=== PATIENT | female | born 1955 | race Hispanic/Latino ===

== ENCOUNTER 2018-08-04 12:18 | Emergency (ER) | payer BC ==
[2018-08-04] MEDS ORDERED: HYDROCODONE/APAP 10/325 TAB ONE (14:27)
--- NOTE | 2018-08-04 16:26 | EDPHYS ---
Physician Documentation [facility] Name: Court Louise Age: 63 yrs Sex: Female : 1955 Arrival Date: 08/04/2018 Time: 12:23 Bed 10 Private MD: Trey Mejia T; Vadim Crockett V ED Physician Raimundo Perez HPI: 08/04 14:18 This 63 yrs old Female presents to ER via Ambulatory with complaints of Knee jmm Pain. 14:18 The patient presents with an injury, pain, that is acute. Onset: The symptoms/episode jmm began/occurred gradually, 1 week(s) ago. Modifying factors: The symptoms are alleviated by elevating leg, the symptoms are aggravated by weight bearing. Associated signs and symptoms: Pertinent negatives fever, numbness. This is a 63 year old female with a history of htn that presents to the ED with left medial knee pain beginning approx 1 week ago. Pain is exacerbated by weight bearing. Patient denies injury or fever. . Historical: - Allergies: 13:01 No Known Allergies; aj1 - PMHx: 13:01 Hypertension; aj1 - Immunization history:: Adult Immunizations up to date. - Social history:: Smoking status: Patient/guardian denies using tobacco. - Ebola Screening: : No symptoms or risks identified at this time. ROS: 14:18 Constitutional: Negative for fever, chills, and weight loss, Eyes: Negative for injury, jmm pain, redness, and discharge, Cardiovascular: Negative for chest pain, palpitations, and edema, Respiratory: Negative for shortness of breath, cough, wheezing, and pleuritic chest pain. 14:18 MS/extremity: Positive for pain. 14:18 All other systems are negative. Exam: 14:18 Constitutional: This is a well developed, well nourished patient who is awake, alert, jmm and in no acute distress. Head/Face: atraumatic. Eyes: EOMI, no conjunctival erythema appreciated ENT: Moist Mucus Membranes Neck: Trachea midline, Supple Chest/axilla: Normal chest wall appearance and motion. Cardiovascular: Regular rate and rhythm. No edema appreciated Respiratory: Normal respirations, no respiratory distress appreciated Abdomen/GI: Non distended, soft Back: Normal ROM Skin: General appearance color normal 14:18 Musculoskeletal/extremity: ROM: intact in all extremities, limited active range of motion due to pain, Pulses: are normal with no appreciated deficits, pain elicited on palpation of the left medial knee, no erythema appreciated, no induration is appreciated. 14:18 Skin: Appearance: Color: normal in color. 14:18 Neuro: Orientation: is normal, Mentation: is normal, Memory: is normal. 14:18 Psych: Behavior/mood is pleasant, cooperative. Vital Signs: 13:01 BP 130 / 91; Pulse 71; Resp 18; Temp 97.0; Pulse Ox 100% on R/A; Weight 83.91 kg (R); aj1 Height 5 ft. 4 in. (162.56 cm); Pain 6/10; 16:34 BP 132 / 68; Pulse 78; Resp 18; Pulse Ox 100% on R/A; Pain 0/10; mg2 13:01 Body Mass Index 31.75 (83.91 kg, 162.56 cm) [facility] MDM: 14:16 Patient medically screened. [facility] 16:23 Data reviewed: vital signs, nurses notes. Counseling: I had a detailed discussion with [facility] the patient and/or guardian regarding: the historical points, exam findings, and any diagnostic results supporting the discharge/admit diagnosis, lab results, radiology results, the need for outpatient follow up, to return to the emergency department if symptoms worsen or persist or if there are any questions or concerns that arise at home. 16:23 ED course: Symptoms are relieved in the ED. Left knee is non erythematous, no known [facility] trauma, patient is afebrile, i do not suspect septic joint. patient given knee immobilzer and will follow up with her orthopedic surgeon. . 08/04 13:02 Order name: XRAY Knee LEFT 3 view [facility] 08/04 15:43 Order name: Knee Immobilizer; Complete Time: 16:03 [facility] Administered Medications: 14:21 Drug: [place] 10 mg-325 mg 1 tabs Route: PO; ss 16:03 Follow up: Response: No adverse reaction; Marked relief of symptoms mg2 Disposition: 18:32 Co-signature as Attending Physician, Raimundo Perez MD. rn Disposition: 08/04/18 16:25 Discharged to Home. Impression: Pain in left knee. - Condition is Stable. - Discharge Instructions: Knee Pain. - Prescriptions for Ultram 50 mg Oral Tablet - take 1 tablet by ORAL route every 6 hours As needed; 12 tablet. - Medication Reconciliation Form, Thank You Letter, Antibiotic Education, Prescription Opioid Use form. - Follow up: Vernon Bernal MD; When: 2 - 3 days; Reason: Recheck today's complaints, Continuance of care, Re-evaluation by your physician. Signatures: Dispatcher [employer] EDVanessa Cisneros RN RN aj1 Tyler Basurto PA PA jmm Nieto, Roman, MD MD rn Lamar Barone RN RN ss Jesus Pantoja RN RN mg2 Corrections: (The following items were deleted from the chart) 16:34 16:25 08/04/2018 16:25 Discharged to Home. Impression: Pain in left knee. Condition is mg2 Stable. Forms are Medication Reconciliation Form, Thank You Letter, Antibiotic Education, Prescription Opioid Use. Follow up: Vernon Bernal; When: 2 - 3 days; Reason: Recheck today's complaints, Continuance of care, Re-evaluation by your physician. nena
--- NOTE | 2018-08-04 16:26 | ER ---
Nurse's Notes [facility] Name: Court Louise Age: 63 yrs Sex: Female : 1955 Arrival Date: 08/04/2018 Time: 12:23 Bed 10 Private MD: Trey Mejia T; Vadim Crockett V Diagnosis: Pain in left knee Presentation: 08/04 13:00 Presenting complaint: Patient states: "I don't know what I did to my knee but it hurts aj1 like ondinazy. Its been hurting for the past week. I called my doctor but he can't see me until next week" Reports left knee pain. Denies injury to left knee Limited ROM to left knee. Transition of care: patient was not received from another setting of care. Onset of symptoms was July 2018. Risk Assessment: Do you want to hurt yourself or someone else? Patient reports no desire to harm self or others. Initial Sepsis Screen: Does the patient meet any 2 criteria? No. Patient's initial sepsis screen is negative. Does the patient have a suspected source of infection? No. Patient's initial sepsis screen is negative. Care prior to arrival: None. 13:00 Method Of Arrival: Ambulatory aj1 13:00 Acuity: TORIBIO 4 aj1 Triage Assessment: 13:01 General: Appears in no apparent distress. comfortable, Behavior is calm, cooperative, aj1 appropriate for age. Pain: Complains of pain in left knee Pain currently is 8 out of 10 on a pain scale. Neuro: No deficits noted. Level of Consciousness is awake, alert, obeys commands. Cardiovascular: Patient's skin is warm and dry. Respiratory: Airway is patent Respiratory effort is even, unlabored, Respiratory pattern is regular, symmetrical. Historical: - Allergies: 13:01 No Known Allergies; aj1 - PMHx: 13:01 Hypertension; aj1 - Immunization history:: Adult Immunizations up to date. - Social history:: Smoking status: Patient/guardian denies using tobacco. - Ebola Screening: : No symptoms or risks identified at this time. Screenin:00 Abuse screen: Denies threats or abuse. Denies injuries from another. Nutritional ss screening: No deficits noted. Tuberculosis screening: No symptoms or risk factors identified. Never had TB. Fall Risk None identified. Assessment: 14:00 General: Appears in no apparent distress. comfortable, Behavior is calm, cooperative, ss Denies fever, feeling ill, fatigue, chills. General: pt ambulated with steady gait and slight limp to exam room 10. Pain: Complains of pain in left knee Pain currently is 6 out of 10 on a pain scale. Quality of pain is described as aching, tender, Pain began 1 week ago Is continuous, Aggravated by increased activity, weight bearing. Neuro: Level of Consciousness is awake, alert, obeys commands, Oriented to person, place, time, situation. Cardiovascular: Capillary refill < 3 seconds is brisk in bilateral fingers. Respiratory: Airway is patent Respiratory effort is even, unlabored, Respiratory pattern is regular, symmetrical. GI: No signs and/or symptoms were reported involving the gastrointestinal system. EENT: Oral mucosa is moist. Throat is clear. Derm: Skin is pink, warm \\T\\ dry. Musculoskeletal: Circulation, motion, and sensation intact. Range of motion: intact in all extremities, Swelling absent. Vital Signs: 13:01 BP 130 / 91; Pulse 71; Resp 18; Temp 97.0; Pulse Ox 100% on R/A; Weight 83.91 kg (R); aj1 Height 5 ft. 4 in. (162.56 cm); Pain 6/10; 16:34 BP 132 / 68; Pulse 78; Resp 18; Pulse Ox 100% on R/A; Pain 0/10; mg2 13:01 Body Mass Index 31.75 (83.91 kg, 162.56 cm) aj1 ED Course: 12:23 Patient arrived in ED. sb2 12:23 Trey Mejia MD is Private Physician. sb2 12:23 Vadim Crockett MD is Private Physician. sb2 13:01 Triage completed. aj1 13:01 Arm band placed on Patient placed in waiting room, Patient notified of wait time. aj1 13:58 Tyler Basurto PA is PHCP. jmm 13:58 Raimundo Perez MD is Attending Physician. jmm 14:00 Patient has correct armband on for positive identification. Bed in low position. Call ss light in reach. 14:12 Lamar Barone, RN is Primary Nurse. ss 15:47 XRAY Knee LEFT 3 view In Process Unspecified. EDMS 16:03 No provider procedures requiring assistance completed. Patient did not have IV access mg2 during this emergency room visit. Knee immobilizer applied on left knee. 16:25 Vernon Bernal MD is Referral Physician. nena Administered Medications: 14:21 Drug: [place] 10 mg-325 mg 1 tabs Route: PO; ss 16:03 Follow up: Response: No adverse reaction; Marked relief of symptoms mg2 Outcome: 16:25 Discharge ordered by MD. nena 16:34 Discharged to home ambulatory, with family. mg2 16:34 Condition: stable 16:34 Discharge instructions given to patient, family, Instructed on discharge instructions, follow up and referral plans. medication usage, Demonstrated understanding of instructions, follow-up care, medications, Prescriptions given X 1. 16:34 Patient left the ED. mg2 Signatures: Dispatcher [employer] EDVanessa Cisneros RN RN aj1 Tyler Basurto PA PA jmm Smirch, Shelby, RN RN ss Briana Berg sb2 Jesus Pantoja RN RN mg2
[2018-08-04 16:40] VITALS: TEMP 97; O2SAT 100
[2018-08-04 16:45] VITALS: BP 132/68
--- NOTE | 2018-08-05 09:22 | RAD REPORT ---
EXAM DESCRIPTION: RAD - Knee Left 3 View - 08/04/2018 9:38 pm CLINICAL HISTORY: Nontraumatic left knee pain, limited range of motion Report was delayed due to technical malfunction COMPARISON: None. FINDINGS: No fracture, dislocation or periosteal reaction.Minimal joint effusion. Patella femoral josef int space narrowing is present with patella and femur marginal spurring. There is more minimal spurri ng at the quadriceps attachment. Spurring along the tibial spine present. No soft tissue abnormality. IMPRESSION: Degenerative changes are present along with minimal joint effusion. No acute bone findin g. Clinical concerns for internal derangement or occult bony injury could be further assessed with MR im aging.
== END 2018-08-04 16:34 | disposition home or self-care (01) ==
LOC: ER 12:18
DX: M25.562 Pain in left knee (principal); I10 Essential (primary) hypertension
CPT/HCPCS: 99284

== ENCOUNTER 2019-04-29 21:32 | Inpatient (IN) | payer BC ==
[2019-04-29] MEDS ORDERED: ONDANSETRON 4 MG/2 ML VIAL ONE (22:27)
[2019-04-29] MEDS ORDERED: FAMOTIDINE 20 MG/2 ML VIAL IV ONE (22:27)
[2019-04-29] MEDS ORDERED: NA CHLORIDE 0.9% 1,000 ML ONE (22:28)
[2019-04-29 22:40] LABS: Basophils % 0.5 % (0-1.3); Hematocrit 39.5 % (36.0-45.0); Lymphocytes % 12.1 % (15.3-44.8); MPV 10.3 fL (7.6-11.3); RBC Red Blood Cell Count 4.66 M/uL (3.86-4.86)
[2019-04-29 22:53] LABS: ALT/SGPT 26 U/L (12-78); AST/SGOT 23 U/L (15-37); Albumin 4.4 g/dL (3.4-5.0); Alkaline Phosphatase 88 U/L (45-117); BUN Blood Urea Nitrogen 34 mg/dL (7-18); Bicarbonate 26 mmol/L (21-32); Bilirubin Direct < 0.1 mg/dL (0-0.2); Bilirubin Total 0.4 mg/dL (0.2-1.0); Glucose Level 134 mg/dL (74-106); Lipase 213 U/L (73-393); Potassium 3.6 mmol/L (3.5-5.1); Protein, Total 8.2 g/dL (6.4-8.2); Sodium Level 142 mmol/L (136-145)
[2019-04-29] MEDS ORDERED: MORPHINE 4 MG/ML SYR ONE (23:11)
[2019-04-29] MEDS ORDERED: METOCLOPRAMIDE 10 MG/2mL INJ ONE (23:11)
[2019-04-29] MEDS ORDERED: CIPROFLOXACIN HCL 500 MG TAB ONE (23:55)
[2019-04-29] MEDS ORDERED: metroNIDAZOLE 500 MG TABLET ONE (23:55)
--- NOTE | 2019-04-30 01:05 | ER ---
Nurse's Notes [facility] Name: Court Louise Age: 63 yrs Sex: Female : 1955 Arrival Date: 04/29/2019 Time: 21:35 Bed 18 Private MD: Vadim Crockett V Diagnosis: Partial Small Bowel obstruction;Abdominal and pelvic pain Presentation: 04/29 21:38 Presenting complaint: Patient states: since 1729 I have had about 9 episodes of la1 vomiting and bad pain. Transition of care: patient was not received from another setting of care. Onset of symptoms was April 29, 2019. Risk Assessment: Do you want to hurt yourself or someone else? Patient reports no desire to harm self or others. Initial Sepsis Screen: Does the patient meet any 2 criteria? No. Patient's initial sepsis screen is negative. Does the patient have a suspected source of infection? No. Patient's initial sepsis screen is negative. Care prior to arrival: None. 21:38 Method Of Arrival: Ambulatory la1 21:38 Acuity: TORIBIO 3 la1 Historical: - Allergies: 21:39 No Known Allergies; la1 - PMHx: 21:39 Hypertension; High Cholesterol; la1 - PSHx: 21:39 foot sx; la1 - Immunization history:: Adult Immunizations up to date. - Social history:: Smoking status: Patient/guardian denies using tobacco. - Ebola Screening: : No symptoms or risks identified at this time. Screenin:03 Abuse screen: Denies threats or abuse. Denies injuries from another. Nutritional ak1 screening: No deficits noted. Tuberculosis screening: No symptoms or risk factors identified. Fall Risk None identified. Assessment: 22:03 General: Appears uncomfortable, Behavior is calm, cooperative. Pain: Complains of pain ak1 in abdomen Quality of pain is described as crampy, Pain began 3 hours ago. Neuro: No deficits noted. Cardiovascular: No deficits noted. Respiratory: No deficits noted. GI: Abdomen is round non-distended, Bowel sounds present X 4 quads. Abd is soft X 4 quads Abdomen is tender to palpation in right upper quadrant Reports cramping, nausea, Patient currently denies diarrhea. : No signs and/or symptoms were reported regarding the genitourinary system. EENT: No signs and/or symptoms were reported regarding the EENT system. Derm: No signs and/or symptoms reported regarding the dermatologic system. Musculoskeletal: No signs and/or symptoms reported regarding the musculoskeletal system. 04/30 00:00 Reassessment: pt returned from CT Patient states feeling better. Patient states ak1 symptoms have improved. 01:18 Reassessment: Patient appears in no apparent distress at this time. No changes from ak1 previously documented assessment. Patient and/or family updated on plan of care and expected duration. Pain level reassessed. Patient is alert, oriented x 3, equal unlabored respirations, skin warm/dry/pink. Patient states feeling better. Patient states symptoms have improved. 02:16 Reassessment: Patient appears in no apparent distress at this time. No changes from ak1 previously documented assessment. Patient and/or family updated on plan of care and expected duration. Pain level reassessed. Patient is alert, oriented x 3, equal unlabored respirations, skin warm/dry/pink. Patient states feeling better. Patient states symptoms have improved. Vital Signs: 04/29 21:39 BP 108 / 61; Pulse 81; Resp 16; Temp 98.4; Pulse Ox 98% on R/A; Weight 81.19 kg; Height la1 5 ft. 4 in. (162.56 cm); 23:04 BP 165 / 74; Pulse 74; Resp 16; Pulse Ox 99% on R/A; ak1 04/30 01:02 BP 129 / 70; Pulse 80; Resp 18; Temp 98.4; Pulse Ox 96% on R/A; Pain 0/10; ak1 02:17 BP 112 / 53; Pulse 72; Resp 16; Temp 98.6; Pulse Ox 97% on R/A; ak1 04/29 21:39 Body Mass Index 30.72 (81.19 kg, 162.56 cm) la1 ED Course: 04/29 21:35 Patient arrived in ED. am2 21:35 Vadim Crockett MD is Private Physician. am2 21:39 Triage completed. la1 21:39 Aleksandr Copeland MD is Attending Physician. kdr 21:39 Arm band placed on right wrist. la1 21:46 Sruthi Evangelista, VENECIA is Primary Nurse. ak1 22:03 Patient has correct armband on for positive identification. Placed in gown. Bed in low ak1 position. Call light in reach. Side rails up X 1. Adult w/ patient. Pulse ox on. NIBP on. Door closed. Lights dimmed. Warm blanket given. 22:44 Initial lab(s) drawn, by ED staff, sent to lab. Inserted saline lock: 20 gauge in right ak1 antecubital area, using aseptic technique. ,using aseptic technique. placed by Ashlee Meyer Blood collected. 22:51 Radiology exam delayed due to lab results not completed at this time. (BUN/Creatinine). 2 23:43 CT Abd/Pelvis - IV Contrast Only In Process Unspecified. EDMS 04/30 01:03 Vadim Crockett MD is Hospitalizing Provider. kdr 02:16 No provider procedures requiring assistance completed. Patient admitted, IV remains in ak1 place. Administered Medications: 04/29 22:42 Drug: NS 0.9% 1000 ml Route: IV; Rate: 1 bolus; Site: right antecubital; co1 04/30 00:19 Follow up: IV Status: Completed infusion; IV Intake: 1000ml ak 04/29 22:42 Drug: Zofran 4 mg Route: IVP; Site: right antecubital; ak1 22:43 Follow up: Response: No adverse reaction ak1 22:42 Drug: Pepcid 20 mg Route: IVP; Site: right antecubital; ak1 22:43 Follow up: Response: No adverse reaction ak1 23:22 Drug: Reglan 10 mg Route: IVP; Site: right antecubital; ak1 23:31 Follow up: Response: RASS: Restless (+1) co1 23:22 Drug: morphine 4 mg {Note: RASS 0.} Route: IVP; Site: right antecubital; ak1 23:30 Follow up: Response: Anxiety increased; RASS: Restless (+1) ak1 23:58 Drug: Flagyl 500 mg Route: PO; ak1 04/30 00:19 Follow up: Response: No adverse reaction ak1 04/29 23:59 Drug: Cipro 500 mg Route: PO; ak1 04/30 00:19 Follow up: Response: No adverse reaction ak1 Intake: 00:19 IV: 1000ml; Total: 1000ml. co1 Outcome: 01:04 Decision to Hospitalize by Provider. kdr 02:17 Admitted to Med/surg accompanied by tech, via wheelchair, room 406, with chart. ak1 02:17 Condition: good 02:17 Instructed on the need for admit. 02:53 Patient left the ED. ak1 Signatures: Dispatcher [employer] EDMS Aleksandr Copeland MD MD kdr Attema, Lee RN RN coty1 Sruthi Evangelista RN RN ak1 Maggie Mazariegos Victoria vm
--- NOTE | 2019-04-30 01:06 | EDPHYS ---
Physician Documentation [facility] Name: Court Louise Age: 63 yrs Sex: Female : 1955 Arrival Date: 04/29/2019 Time: 21:35 Bed 18 Private MD: Vadim Crockett V ED Physician Aleksandr Copeland HPI: 04/30 04:12 This 63 yrs old Female presents to ER via Ambulatory with complaints of kdr Nausea/Vomiting, Abdominal Cramping. 04:12 The patient presents to the emergency department with nausea, that is mild, vomiting, kdr that is intermittent, abdominal pain, of the right upper quadrant and right lower quadrant. Onset: The symptoms/episode began/occurred suddenly, just prior to arrival, at 18:30. Possible causes: bad food exposure. The symptoms are aggravated by movement, food , The symptoms are alleviated by nothing. Severity of symptoms: At their worst the symptoms were moderate severe in the emergency department the symptoms have improved mildly. The patient has not experienced similar symptoms in the past. The patient has not recently seen a physician. The patient had been eating out and prior to leaving the restaurant, she became ill feeling that she had food poisoning. Historical: - Allergies: 04/29 21:39 No Known Allergies; la1 - PMHx: 21:39 Hypertension; High Cholesterol; la1 - PSHx: 21:39 foot sx; la1 - Immunization history:: Adult Immunizations up to date. - Social history:: Smoking status: Patient/guardian denies using tobacco. - Ebola Screening: : No symptoms or risks identified at this time. ROS: 04/30 04:12 Constitutional: Negative for fever, chills, and weight loss, Eyes: Negative for injury, kdr pain, redness, and discharge, ENT: Negative for injury, pain, and discharge, Neck: Negative for injury, pain, and swelling, Cardiovascular: Negative for chest pain, palpitations, and edema, Respiratory: Negative for shortness of breath, cough, wheezing, and pleuritic chest pain, Back: Negative for injury and pain, : Negative for injury, bleeding, discharge, and swelling, MS/Extremity: Negative for injury and deformity, Skin: Negative for injury, rash, and discoloration, Neuro: Negative for headache, weakness, numbness, tingling, and seizure activity. Psych: Negative for depression, anxiety, suicide ideation, homicidal ideation, and hallucinations, Allergy/Immunology: Negative for hives, rash, and allergies, Endocrine: Negative for neck swelling, polydipsia, polyuria, polyphagia, and marked weight changes, Hematologic/Lymphatic: Negative for swollen nodes, abnormal bleeding, and unusual bruising. Abdomen/GI: Positive for abdominal pain, nausea and vomiting, Negative for diarrhea, constipation, abdominal distension, anorexia, dysphagia, hematemesis, black/tarry stool, rectal pain, rectal bleeding, bowel incontinence. Exam: 04:12 Constitutional: This is a well developed, well nourished patient who is awake, alert, kdr and in no acute distress. Head/Face: Normocephalic, atraumatic. Eyes: Pupils equal round and reactive to light, extra-ocular motions intact. Lids and lashes normal. Conjunctiva and sclera are non-icteric and not injected. Cornea within normal limits. Periorbital areas with no swelling, redness, or edema. Neck: Trachea midline, no thyromegaly or masses palpated, and no cervical lymphadenopathy. Supple, full range of motion without nuchal rigidity, or vertebral point tenderness. No Meningismus. Chest/axilla: Normal chest wall appearance and motion. Nontender with no deformity. No lesions are appreciated. Cardiovascular: Regular rate and rhythm with a normal S1 and S2. No gallops, murmurs, or rubs. Normal PMI, no JVD. No pulse deficits. Respiratory: Lungs have equal breath sounds bilaterally, clear to auscultation and percussion. No rales, rhonchi or wheezes noted. No increased work of breathing, no retractions or nasal flaring. Back: No spinal tenderness. No costovertebral tenderness. Full range of motion. Skin: Warm, dry with normal turgor. Normal color with no rashes, no lesions, and no evidence of cellulitis. MS/ Extremity: Pulses equal, no cyanosis. Neurovascular intact. Full, normal range of motion. Neuro: Awake and alert, GCS 15, oriented to person, place, time, and situation. Cranial nerves II-XII grossly intact. Motor strength 5/5 in all extremities. Sensory grossly intact. Cerebellar exam normal. Normal gait. Psych: Awake, alert, with orientation to person, place and time. Behavior, mood, and affect are within normal limits. 04:12 Abdomen/GI: Inspection: abdomen appears normal, Bowel sounds: diminished, in all quadrants, Palpation: soft, mild abdominal tenderness, in the right upper quadrant and right lower quadrant, mass, is not appreciated, rebound tenderness, is not appreciated, voluntary guarding, is not appreciated, Indicators: McBurney's point is not tender, Villalobos's sign is negative, Rovsing's sign is negative, Psoas sign is negative. Vital Signs: 04/29 21:39 BP 108 / 61; Pulse 81; Resp 16; Temp 98.4; Pulse Ox 98% on R/A; Weight 81.19 kg; Height la1 5 ft. 4 in. (162.56 cm); 23:04 BP 165 / 74; Pulse 74; Resp 16; Pulse Ox 99% on R/A; ak1 04/30 01:02 BP 129 / 70; Pulse 80; Resp 18; Temp 98.4; Pulse Ox 96% on R/A; Pain 0/10; ak1 02:17 BP 112 / 53; Pulse 72; Resp 16; Temp 98.6; Pulse Ox 97% on R/A; ak1 04/29 21:39 Body Mass Index 30.72 (81.19 kg, 162.56 cm) la1 MDM: 01:04 Patient medically screened. kdr 01:16 Data reviewed: vital signs, nurses notes, lab test result(s), radiologic studies. kdr Counseling: I had a detailed discussion with the patient and/or guardian regarding: the historical points, exam findings, and any diagnostic results supporting the discharge/admit diagnosis, lab results, radiology results, the need for further work-up and treatment in the hospital. Physician consultation: Vadim Crockett MD was called at 01:15, was contacted at 01:15, regarding admission, to the medical/surgical unit. and will see patient in inpatient room, later today. Physician consultation: Rohith Kennedy MD was called at 01:00, was contacted at 01:00, regarding admission, and will see patient in inpatient room, later today. Admission orders: after a detailed discussion of the patient's condition and case, the admit orders are written by me. ED course: The patient was stable. No NG since had vomited once and flet better. 04/29 22:12 Order name: Basic Metabolic Panel; Complete Time: 23:17 ak1 04/29 22:12 Order name: CBC with Diff; Complete Time: 23:17 ak1 04/29 22:12 Order name: Creatinine for Radiology; Complete Time: 23:17 ak1 04/29 22:12 Order name: Hepatic Function; Complete Time: 23:17 ak1 04/29 22:12 Order name: Lipase; Complete Time: 23:17 ak1 04/30 01:39 Order name: Basic Metabolic Panel EDMS 04/29 22:21 Order name: CT Abd/Pelvis - IV Contrast Only kdr 04/30 01:39 Order name: Basic Metabolic Panel EDMS 04/30 01:39 Order name: CBC with Automated Diff EDMS 04/30 01:39 Order name: CBC with Automated Diff EDMS 04/30 01:39 Order name: Lipase EDMS 04/30 01:39 Order name: Lipase EDMS 04/30 01:39 Order name: Liver (Hepatic) Function EDMS 04/30 01:39 Order name: Liver (Hepatic) Function EDMS 04/29 22:12 Order name: IV Saline Lock; Complete Time: 22:31 ak1 04/29 22:12 Order name: Labs collected and sent; Complete Time: 22: ak1 04/30 01:39 Order name: NPO EDMS Administered Medications: 04/29 22:42 Drug: NS 0.9% 1000 ml Route: IV; Rate: 1 bolus; Site: right antecubital; ak1 04/30 00:19 Follow up: IV Status: Completed infusion; IV Intake: 1000ml ak 04/29 22:42 Drug: Zofran 4 mg Route: IVP; Site: right antecubital; ak1 22:43 Follow up: Response: No adverse reaction ak1 22:42 Drug: Pepcid 20 mg Route: IVP; Site: right antecubital; ak1 22:43 Follow up: Response: No adverse reaction ak1 23:22 Drug: Reglan 10 mg Route: IVP; Site: right antecubital; ak1 23:31 Follow up: Response: RASS: Restless (+1) ak1 23:22 Drug: morphine 4 mg {Note: RASS 0.} Route: IVP; Site: right antecubital; ak1 23:30 Follow up: Response: Anxiety increased; RASS: Restless (+1) ak1 23:58 Drug: Flagyl 500 mg Route: PO; ak1 04/30 00:19 Follow up: Response: No adverse reaction ak1 04/29 23:59 Drug: Cipro 500 mg Route: PO; ak1 04/30 00:19 Follow up: Response: No adverse reaction ak1 Disposition: 04/30/19 01:04 Hospitalization ordered by Vadim Crockett for Inpatient Admission. Preliminary diagnosis are Partial Small Bowel obstruction, Abdominal and pelvic pain. - Bed requested for Telemetry/MedSurg (Inpatient). - Status is Inpatient Admission. ak1 - Condition is Fair. - Problem is new. - Symptoms have improved. UTI on Admission? No Signatures: Dispatcher [employer] EDMS Aleksandr Copeland MD MD kdr Attema, Lee RN RN Sruthi Ambriz RN RN [email or web address] Felisa Clement RN RN cg Corrections: (The following items were deleted from the chart) 02:06 01:04 Hospitalization Ordered by Vadim Crockett MD for Inpatient Admission. Preliminary cg diagnosis is Partial Small Bowel obstruction; Abdominal and pelvic pain. Bed requested for Telemetry/MedSurg (Inpatient). Status is Inpatient Admission. Condition is Fair. Problem is new. Symptoms have improved. UTI on Admission? No. kdr 02:09 02:06 04/30/2019 01:04 Hospitalization Ordered by Vadim Crockett MD for Inpatient cg Admission. Preliminary diagnosis is Partial Small Bowel obstruction; Abdominal and pelvic pain. Bed requested for Telemetry/MedSurg (Inpatient). Status is Inpatient Admission. Condition is Fair. Problem is new. Symptoms have improved. UTI on Admission? No. cg 02:53 02:09 04/30/2019 01:04 Hospitalization Ordered by Vadim Crockett MD for Inpatient ak1 Admission. Preliminary diagnosis is Partial Small Bowel obstruction; Abdominal and pelvic pain. Bed requested for Telemetry/MedSurg (Inpatient). Status is Inpatient Admission. Condition is Fair. Problem is new. Symptoms have improved. UTI on Admission? No. cg
[2019-04-30] MEDS ORDERED: ONDANSETRON 4 MG/2 ML VIAL IV PRN (01:33)
[2019-04-30] MEDS ORDERED: ACETAMINOPHEN 500 MG TAB PO PRN (01:33)
[2019-04-30] MEDS ORDERED: MORPHINE 4 MG/ML SYR IV PRN (01:33)
[2019-04-30] MEDS: D5 0.45 NS 1,000 ML IV SCH ×3 (03:25→20:21)
[2019-04-30 03:53] VITALS: BMI 30.1
[2019-04-30] MEDS: METRONIDAZOLE 500mg IVPB 500 MG/100 ML BAG IV SCH ×4 (06:11→23:43)
[2019-04-30 07:19] LABS: Urine Appearance CLEAR; Urine Bilirubin NEGATIVE (NEG); Urine Blood NEGATIVE (NEG); Urine Color YELLOW; Urine Glucose NEGATIVE (NEG); Urine Protein NEGATIVE (NEG); Urine Specific Gravity >=1.030 (1.005-1.030)
[2019-04-30 07:20] LABS: Urine Microscopic Reflex NO UMIC
[2019-04-30] MEDS: LEVOTHYROXINE SOD 0.112 MG TAB PO SCH (08:27)
[2019-04-30] MEDS: CIPROFLOXACIN 400mg IV 400 MG/200 ML BAG IV SCH ×2 (08:28→20:21)
[2019-04-30] MEDS: BENAZEPRIL 10 MG TAB PO SCH (08:29)
[2019-04-30] MEDS: AMLODIPINE 5 MG TAB PO SCH (08:29)
[2019-04-30] MEDS ORDERED: BENAZEPRIL PO SCH (09:00)
[2019-04-30] MEDS ORDERED: [UNRECOGNIZED DRUG - OTHER] PO SCH (09:00)
[2019-04-30] MEDS ORDERED: AMLODIPINE BESYLATE PO SCH (09:00)
--- NOTE | 2019-04-30 10:33 | RAD REPORT ---
EXAM DESCRIPTION: CT - Abdomen Pelvis W Contrast - 04/30/2019 2:05 am CLINICAL HISTORY: ABD PAIN COMPARISON: None Available. TECHNIQUE: CT of the abdomen and pelvis performed following IV administration of iodinated contrast. DLP: 1588.2 mGycm FINDINGS: Lung Bases: The visualized lung bases are clear. Bones: Mild degenerative change of the spine. Abdomen: Liver: The liver has normal size and density. No intrahepatic mass or biliary dilatation. Gallbladder: No calcified gallstones. Spleen, Pancreas, and Adrenal Glands: The spleen, pancreas, and adrenal glands are unremarkable. Kidneys: The kidneys have normal size and contour without evidence of hydronephrosis. 6 mm fat density structure in the interpolar left kidney. Vasculature: Aortoiliac atherosclerosis. IVC is unremarkable. The portal vein is patent. The proxim al visceral and renal arteries are patent. Stomach: The stomach and duodenum have normal course. Other: No free intraperitoneal air. Tiny fat-containing umbilical hernia. No free fluid or lymphade nopathy. Pelvis: Bladder: Urinary bladder is unremarkable. Bowel: Dilated loops of small bowel with transition to decompressed loops of small bowel right lowe r abdomen. The transition point is at the site of short segment wall thickening of the small bowel be st seen on images #46 through 50, series #501. The colon is nondilated. Appendix: Normal appendix. Pelvis: Uterus is not enlarged. IMPRESSION: 1. Findings compatible with small bowel obstruction with transition point in the right l ower abdomen. The transition occurs at a short segment of small bowel wall thickening which may repre sent enteritis of nonspecific etiology. Small bowel obstruction is likely partial. 2. 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 This exam was performed according to our departmental dose-optimization program, which includes autom ated exposure control, adjustment of the mA and/or kV according to patient size and/or use of iterati ve reconstruction technique. Electronically signed by: Delroy Muro 04/30/2019 12:01 AM CDT Due to temporary technical issues with the PACS/Fluency reporting system, reports are being signed by the in house radiologist as a courtesy to ensure prompt reporting. The interpreting radiologist is f ully responsible for the content of the report.
--- NOTE | 2019-04-30 13:13 | P.HP ---
Certification for Inpatient Patient admitted to: Observation With expected LOS: <2 Midnights Practitioner: I am a practitioner with admitting privileges, knowledge of patient current condition, hospital course, and medical plan of care. Services: Services provided to patient in accordance with Admission requirements found in Title 42 Section 412.3 of the Code of Federal Regulations Patient History Date of Service: 04/30/19 Reason for admission: NAUSEA AND VOMITING FOR A DAY. History of Present Illness: MIKI STARTED HAVING NAUSEA AND VOMITING WITHIN HOUR AFTER FOOD AT [employer]. SHE REPORTS TO ER. ER DOCTOR ORDERS CT SCAN AND RADIOLOGY REPORT SUGGEST PARTIA BLOCKAGE OF SMALL INTESTINE. SHE IS LOT BETTER NOW. DR. WARREN DOES NOT SUSPECT BOWEL BLOCKAGE ON CT SCAN. NOW THIS AM SHE HAS NO NAUSEA, VOMITING OR DIARRHEA. Allergies No Known Allergies Allergy (Verified 04/30/19 03:08) Home Medications: Amlodipine Besylate/Benazepril [Amlodipine-Benazepril 5-10 mg] 1 cap PO DAILY Atorvastatin Calcium 40 mg PO DAILY 04/30/19 Levothyroxine [Synthroid] 112 mcg PO DAILY 04/30/19 - Past Medical/Surgical History Has patient received pneumonia vaccine in the past: No Diabetic: No -: HTN -: High cholesterol -: Thyroid -: Foot sx -: Fat removed left shoulder - Family History Father -: Heart disease, Diabetes - Social History Smoking Status: Never smoker Alcohol use: Yes CD- Drugs: No Caffeine use: Yes Place of Residence: Home Review of Systems 10-point ROS is otherwise unremarkable Gastrointestinal: Nausea, Vomiting Physical Examination - Vital Signs Temperature: 98.4 F Blood Pressure: 136/70 Pulse: 72 Respirations: 16 Pulse Ox (%): 98 - Physical Exam General: Alert, In no apparent distress HEENT: Atraumatic, PERRLA, Mucous membr. moist/pink, EOMI, Sclerae nonicteric Neck: Supple, 2+ carotid pulse no bruit, No LAD, Without JVD or thyroid abnormality Respiratory: Clear to auscultation bilaterally, Normal air movement Cardiovascular: Regular rate/rhythm, Normal S1 S2 Gastrointestinal: Normal bowel sounds, No tenderness Musculoskeletal: No tenderness Integumentary: No rashes Neurological: Normal gait, Normal speech, Normal strength at 5/5 x4 extr, Normal tone, Normal affect Lymphatics: No axilla or inguinal lymphadenopathy - Studies Laboratory Data (last 24 hrs) 04/29/19 22:24: Creatinine 1.18 04/29/19 22:24: WBC 16.4 H, Hgb 13.4, Hct 39.5, Plt Count 246 04/29/19 22:24: Sodium 142, Potassium 3.6, BUN 34 H, Creatinine 1.16, Glucose 134 H, Total Bilirubin 0.4, AST 23, ALT 26, Alkaline Phosphatase 88, Lipase 213 Assessment and Plan - Problems (Diagnosis) (1) Partial small bowel obstruction Current Visit: Yes Status: Acute Plan: HER ABDOMEN IS VERY SOFT, SHE HAS NO DISTENSION AND BOWEL SOUNDS ARE PRESENT NORMALLY. I AGREE WITH DR. WARREN THAT SHE MAY NOT HAVE ANY OR VERY MILD BLOCKAGE. SHE MAY BE ABLE TO GO HOME IN AM. - Advance Directives Does patient have a Living Will: No Does patient have a Durable POA for Healthcare: No
--- NOTE | 2019-04-30 14:23 | CON ---
Date of Consultation: 04/30/2019 Brief History Of Present Illness: Patient is a 63-year-old female who presents to the hospital with approximately half a day history of epigastric mild abdominal pain radiating throughout the entire ab domen, more localized in the midline area, and some nausea and vomiting beginning yesterday after eat ing a meal. She has never had similar episodes before in the past. Since coming to the hospital, vivian reveles continues to have improvement of her symptoms. Her nausea has essentially resolved. She has no ab dominal pain at this time and has continued to pass gas. She has never not had bowel function throug hout this entire episode. She has continued to pass gas. Has not had a bowel movement since being i n the hospital, but had a normal one as of yesterday. Last colonoscopy was greater than [address] Cedillo. She denies any other symptomatology at this time. No fever, chills, recent sick c ontacts. No recent travel outside the country. No new food exposure she is aware of. She was eatin g at [facility] yesterday when these symptoms occurred. Past Medical History: Significant for hypertension, high cholesterol, hypothyroidism. Past Surgical History: She has had shoulder surgery and a foot surgery. Allergies: NO KNOWN DRUG ALLERGIES. Home Medications: Amlodipine, atorvastatin, levothyroxine. Social History: She denies smoking or alcohol other than recreationally and no recreational drug use . She is accompanied by her . Review of Systems: A 10-point review of systems other than HPI denies. Physical Examination: Vital Signs: Her BMI is 30. Blood pressure 121/59, pulse is 67, respiratory rate 18, temperature 97 .4. General: She is awake, alert, oriented. Psychiatric: She is appropriate and conversive. HEENT: Normocephalic. Sclerae anicteric. Mucous membranes moist. Oropharynx clear. Neck: Supple. No JVD. Chest: Normal expansion and excursion. Cardiovascular: Regular rate and rhythm. Pulmonary: Clear to auscultation bilaterally. Abdomen: Soft, nontender, nondistended. No rebound. No guarding. No focal peritonitis. Extremities: No clubbing, cyanosis, or edema. Laboratory Data: White blood count of 6.4, hemoglobin is 13.4, hematocrit of 39.5, platelet count is 246, neutrophils are 82%. Her sodium is 142, potassium 3.6, chloride 106, carbon dioxide 24, BUN 34 , creatinine 1.1, glucose is 134. Total bilirubin 0.4, direct component 0.1. AST 23, ALT 26, alkali ne phosphatase is 88. Lipase is 213. UA was essentially negative. She had imaging performed which included CT abdomen and pelvis, which was read by the MD.Voice system as a possible early partial sm all-bowel obstruction versus enteritis. I personally reviewed the CT and see that she has multiple d ilated loops of small bowel without an abrupt transition, and therefore I suspect more of an enteriti s-type picture. Assessment And Plan: This is a 63-year-old female who presents with signs of likely enteritis. 1.Examining the CT and her clinical exam do not sound indicative of a small-bowel obstruction, espec ially considering the patient has no obvious hernias or past surgical history in her abdomen. All of her surgeries were related to non-abdominal context. She has not had gynecologic or pelvic surgery as well, therefore lowering the suspicion of a partial small-bowel obstruction. 2.I recommend starting clear liquid diet and advancing as tolerated. 3.Should the patient tolerate this, she is deemed appropriate for discharge from a surgical standpoi nt when cleared by Dr. Crockett. 4.I recommend followup with GI, Dr. Cedillo, for repeat colonoscopy as well as outpatient followup. Thank you for this interesting consult. MARCIE/FRANCOISE Voice ID: [id number] Report ID: [id number]
[2019-04-30] MEDS ORDERED: ATORVASTATIN 40 MG TAB PO SCH (21:00)
[2019-04-30 23:19] VITALS: O2SAT 98
[2019-05-01] MEDS: D5 0.45 NS 1,000 ML IV SCH (02:06)
[2019-05-01] MEDS: LEVOTHYROXINE SOD 0.112 MG TAB PO SCH (05:47)
[2019-05-01] MEDS: METRONIDAZOLE 500mg IVPB 500 MG/100 ML BAG IV SCH (05:47)
[2019-05-01 05:56] LABS: Absolute Lymphocytes (CBC) 1.7 K/uL (0.7-4.9); Basophils % 0.4 % (0-1.3); Hematocrit 37.1 % (36.0-45.0); Lymphocytes % 21.8 % (15.3-44.8); MPV 10.3 fL (7.6-11.3); RBC Red Blood Cell Count 4.31 M/uL (3.86-4.86)
[2019-05-01 06:13] LABS: Albumin 3.5 g/dL (3.4-5.0); Bilirubin Direct 0.1 mg/dL (0-0.2); Bilirubin Total 0.4 mg/dL (0.2-1.0); Potassium 4.3 mmol/L (3.5-5.1); Protein, Total 6.8 g/dL (6.4-8.2)
[2019-05-01] MEDS: CIPROFLOXACIN 400mg IV 400 MG/200 ML BAG IV SCH (08:39)
[2019-05-01] MEDS: BENAZEPRIL 10 MG TAB PO SCH (08:40)
[2019-05-01] MEDS: AMLODIPINE 5 MG TAB PO SCH (08:40)
[2019-05-01 08:41] VITALS: BP 139/67
[2019-05-01 08:43] VITALS: TEMP 98
--- NOTE | 2019-05-01 09:48 | P.DS ---
Admission Date: 04/30/19 Discharge Date: 05/01/19 Disposition: ROUTINE DISCHARGE Discharge Condition: GOOD Reason for Admission: NAUSEA AND VOMITING FOR A DAY. - Problems (1) Partial small bowel obstruction Current Visit: Yes Status: Acute Brief History of Present Illness: MIKI STARTED HAVING NAUSEA AND VOMITING WITHIN HOUR AFTER FOOD AT [employer]. SHE REPORTS TO ER. ER DOCTOR ORDERS CT SCAN AND RADIOLOGY REPORT SUGGEST PARTIA BLOCKAGE OF SMALL INTESTINE. SHE IS LOT BETTER NOW. DR. WARREN DOES NOT SUSPECT BOWEL BLOCKAGE ON CT SCAN. NOW THIS AM SHE HAS NO NAUSEA, VOMITING OR DIARRHEA. \ MS. CHURCH IS DOING GREAT, SHE HAD TWO BM AND IS STABLE TO GO HOME. Vital Signs/Physical Exam: Temp Pulse Resp BP Pulse Ox 98.0 F 73 15 139/67 98 05/01/19 08:00 05/01/19 08:40 05/01/19 08:00 05/01/19 08:40 05/01/19 08:00 Laboratory Data at Discharge: WBC 7.8 K/uL (4.3-10.9) D 05/01/19 05:21 Hgb 12.6 g/dL (12.0-15.0) 05/01/19 05:21 Hct 37.1 % (36.0-45.0) 05/01/19 05:21 Plt Count 221 K/uL (152-406) 05/01/19 05:21 Sodium 144 mmol/L (136-145) 05/01/19 05:21 Potassium 4.3 mmol/L (3.5-5.1) 05/01/19 05:21 BUN 10 mg/dL (7-18) D 05/01/19 05:21 Creatinine 0.99 mg/dL (0.55-1.3) 05/01/19 05:21 Glucose 157 mg/dL (74-106) H 05/01/19 05:21 Total Bilirubin 0.4 mg/dL (0.2-1.0) 05/01/19 05:21 AST 16 U/L (15-37) 05/01/19 05:21 ALT 19 U/L (12-78) 05/01/19 05:21 Alkaline Phosphatase 70 U/L (45-117) 05/01/19 05:21 Lipase 147 U/L (73-393) 05/01/19 05:21 Home Medications: Amlodipine Besylate/Benazepril [Amlodipine-Benazepril 5-10 mg] 1 cap PO DAILY Atorvastatin Calcium 40 mg PO DAILY 04/30/19 Levothyroxine [Synthroid*] 112 mcg PO DAILY 04/30/19
== END 2019-05-01 11:35 | disposition home or self-care (01) | DRG 390 ==
LOC: ER 21:32 → ERHOLD 04-30 01:42 → 2ND 04-30 02:28
PROVIDERS: ADMIT Internal Medicine; ATTEND Internal Medicine
DX: K56.600 Partial intestinal obstruction, unspecified as to cause (principal); I10 Essential (primary) hypertension; E03.9 Hypothyroidism, unspecified; E78.00 Pure hypercholesterolemia, unspecified
CPT/HCPCS: 36415; 74177; 80048; 80076; 81003; 83690; 85025; 96361; 96374; 96375; 99285; J0744; J2405; J2765; J7030; Q9967

== ENCOUNTER 2023-03-01 12:50 | Emergency (ER) | payer OTHER, BC ==
[2023-03-01] MEDS ORDERED: LIDOCAINE 1% MPF 30 ML VIAL ONE (13:59)
[2023-03-01] MEDS ORDERED: HYDROCODONE/APAP 5/325 MG TAB ONE (14:42)
--- NOTE | 2023-03-01 14:42 | EDPHYS ---
Physician Documentation [facility] Name: Court Louise Age: 67 yrs Sex: Female : 1955 Arrival Date: 03/01/2023 Time: 12:50 Bed 2 Private MD: Vadim Crockett V ED Physician Figueroa Suarez HPI: 03/01 14:11 This 67 yrs old Female presents to ER via Ambulatory with complaints of snw Laceration To Foot. 14:11 The patient has a laceration related to: doing yard work, from a shovel, occurred snw outdoors. Onset: The symptoms/episode began/occurred suddenly, just prior to arrival. The patient has not experienced similar symptoms in the past. It is unknown whether or not the patient has recently seen a physician. Historical: - Allergies: 13:35 No Known Allergies; iw - PMHx: 13:35 High Cholesterol; Hypertension; iw - Immunization history:: Last tetanus immunization: unknown. ROS: 14:11 Constitutional: Negative for fever, chills, and weight loss, Eyes: Negative for injury, snw pain, redness, and discharge, ENT: Negative for injury, pain, and discharge, Neck: Negative for injury, pain, and swelling, Cardiovascular: Negative for chest pain, palpitations, and edema, Respiratory: Negative for shortness of breath, cough, wheezing, and pleuritic chest pain, Abdomen/GI: Negative for abdominal pain, nausea, vomiting, diarrhea, and constipation, Back: Negative for injury and pain, : Negative for injury, bleeding, discharge, and swelling, MS/Extremity: Negative for injury and deformity, Neuro: Negative for headache, weakness, numbness, tingling, and seizure, Psych: Negative for depression, anxiety, suicide ideation, homicidal ideation, and hallucinations. 14:11 Skin: Positive for laceration(s), of the right foot. Exam: 14:10 Constitutional: This is a well developed, well nourished patient who is awake, alert, snw and in no acute distress. Head/Face: Normocephalic, atraumatic. Eyes: Pupils equal round and reactive to light, extra-ocular motions intact. Lids and lashes normal. Conjunctiva and sclera are non-icteric and not injected. Cornea within normal limits. Periorbital areas with no swelling, redness, or edema. ENT: Nares patent. No nasal discharge, no septal abnormalities noted. Tympanic membranes are normal and external auditory canals are clear. Oropharynx with no redness, swelling, or masses, exudates, or evidence of obstruction, uvula midline. Mucous membranes moist. Neck: Trachea midline, no thyromegaly or masses palpated, and no cervical lymphadenopathy. Supple, full range of motion without nuchal rigidity, or vertebral point tenderness. No Meningismus. Chest/axilla: Normal chest wall appearance and motion. Nontender with no deformity. No lesions are appreciated. Cardiovascular: Regular rate and rhythm with a normal S1 and S2. No gallops, murmurs, or rubs. Normal PMI, no JVD. No pulse deficits. Respiratory: Lungs have equal breath sounds bilaterally, clear to auscultation and percussion. No rales, rhonchi or wheezes noted. No increased work of breathing, no retractions or nasal flaring. Abdomen/GI: Soft, non-tender, with normal bowel sounds. No distension or tympany. No guarding or rebound. No evidence of tenderness throughout. Back: No spinal tenderness. No costovertebral tenderness. Full range of motion. MS/ Extremity: Pulses equal, no cyanosis. Neurovascular intact. Full, normal range of motion. Neuro: Awake and alert, GCS 15, oriented to person, place, time, and situation. Cranial nerves II-XII grossly intact. Motor strength 5/5 in all extremities. Sensory grossly intact. Cerebellar exam normal. Normal gait. Psych: Awake, alert, with orientation to person, place and time. Behavior, mood, and affect are within normal limits. 14:10 Skin: Appearance: normal except for affected area, injury, laceration(s), the wound is approximately 3 cm(s), with a depth of 1.2 cm(s), of the left foot, dorsal right foot with extensor tendon laceration visible, FROM of all toes. Vital Signs: 13:34 BP 157 / 78; Pulse 79; Resp 16; Temp 98.4; Pulse Ox 99% ; iw Laceration: 14:38 Wound Repair of 3cm ( 1.2in ) tendon involved laceration to right foot. Linear shaped.. snw Distal neuro/vascular/tendon intact. 14:38 Wound Repair of 3cm ( 1.2in ) tendon involved laceration to right foot. Linear shaped.. snw Distal neuro/vascular/tendon intact. Anesthesia: Local anesthetic administered with 5 mls of 1% lidocaine. Wound prep: Moderate cleansing with hibiclenz by nurse, Extensive cleansing. Skin closed with 5 4-0 Prolene using simple sutures and sterile technique. Dressed with pressure dressing, non-adherent dressing, post op shoe. Patient tolerated well. MDM: 13:46 Patient medically screened. snw 14:43 Differential diagnosis: superficial laceration, tendon injury. Data reviewed: vital snw signs, nurses notes. I considered the following discharge prescriptions or medication management in the emergency department Medications were administered in the Emergency Department. See MAR. Counseling: I had a detailed discussion with the patient and/or guardian regarding: the historical points, exam findings, and any diagnostic results supporting the discharge/admit diagnosis, the need for outpatient follow up, for definitive care. Special discussion: I have referred the patient to see his PCP for further evaluation of high blood pressure. I discussed in detail with the patient the higher chance of wound infection based on his presenting history. Based on the history and exam findings, there is no indication for further emergent testing or inpatient evaluation. I discussed with the patient/guardian the need to see the primary care provider for further evaluation of the symptoms. 03/01 13:47 Order name: Dressing - Wound; Complete Time: 14:35 snw 03/01 13:47 Order name: Gloves, Sterile; Complete Time: 14:35 snw 03/01 13:47 Order name: Setup Suture Tray; Complete Time: 14:06 snw 03/01 14:44 Order name: Post-op shoe; Complete Time: 15:16 snw Administered Medications: 14:06 Drug: Hibiclens Topical Liquid 4 % 1 application Route: Topical; Site: affected area; aa5 14:30 Drug: Lidocaine Infiltration (1 %) 1 vials {Note: administered by DINING CAR CONDUCTOR for laceration aa5 repair .} Volume: 20 ml; Route: Infiltration; 14:35 Drug: [place] PO 5 mg-325 mg 1 tabs Route: PO; aa5 15:10 Follow up: Response: No adverse reaction aa5 15:00 Drug: Boostrix Tdap IM 0.5 ml Route: IM; Site: left deltoid; aa5 15:10 Follow up: Response: No adverse reaction aa5 Disposition Summary: 03/01/23 14:41 Discharge Ordered Location: Home snw Condition: Stable snw Diagnosis - LACERATION WITHOUT FOREIGN BODY OF RIGHT DORDAL FOOT WITH TENDON LACERATION snw Followup: snw - With: Emergency Department - When: 10 - 14 days - Reason: Staple/Suture removal Discharge Instructions: - Discharge Summary Sheet snw - Laceration Care, Adult snw - How to Use a Cast Shoe snw Forms: - Medication Reconciliation Form snw - Thank You Letter snw - Antibiotic Education snw - Prescription Opioid Use snw Prescriptions: - Cephalexin 500 mg Oral Capsule - take 1 capsule by ORAL route every 8 hours for 10 days; 30 capsule; Refills: 0, snw Product Selection Permitted - Tramadol 50 mg Oral Tablet - take 1 tablet by ORAL route every 8 hours as needed; 12 tablet; Refills: 0, snw Product Selection Permitted Signatures: Jennyfer Moreau, BUBBA-C REGULATORY COMPLIANCE SPECIALIST-Csnw Aurea Schulz RN RN iw Radha Mckeon RN RN aa5 Corrections: (The following items were deleted from the chart) 14:38 14:10 Skin: Appearance: normal except for affected area, injury, laceration(s), the snw wound is approximately 3 cm(s), with a depth of 1.2 cm(s), of the left foot, dorsal left foot with extensor tendon laceration visible, FROM of all toes. snw 14:38 14:11 Skin: Positive for laceration(s), of the left foot, snw snw
--- NOTE | 2023-03-01 14:42 | ER ---
Nurse's Notes [facility] Name: Court Louise Age: 67 yrs Sex: Female : 1955 Arrival Date: 03/01/2023 Time: 12:50 Bed 2 Private MD: Vadim Crockett V Diagnosis: LACERATION WITHOUT FOREIGN BODY OF RIGHT DORDAL FOOT WITH TENDON LACERATION Presentation: 03/01 13:34 Chief complaint: Patient states: dropped a shovel on the top of her right foot. iw Coronavirus screen: At this time, the client does not indicate any symptoms associated with coronavirus-19. Ebola Screen: Patient negative for fever greater than or equal to 101.5 degrees Fahrenheit, and additional compatible Ebola Virus Disease symptoms Patient denies exposure to infectious person. Patient denies travel to an Ebola-affected area in the 21 days before illness onset. No symptoms or risks identified at this time. Complicating Factors: There are no complicating factors for this patient. Initial Sepsis Screen: Does the patient meet any 2 criteria? No. Patient's initial sepsis screen is negative. Does the patient have a suspected source of infection? No. Patient's initial sepsis screen is negative. Risk Assessment: Do you want to hurt yourself or someone else? Patient reports no desire to harm self or others. Onset of symptoms was March 01, 2023. 13:34 Method Of Arrival: Ambulatory 13:34 Acuity: TORIBIO 4 iw Historical: - Allergies: 13:35 No Known Allergies; iw - PMHx: 13:35 High Cholesterol; Hypertension; iw - Immunization history:: Last tetanus immunization: unknown. Screenin:00 [facility] ED Fall Risk Assessment (Adult) History of falling in the last 3 months, aa5 including since admission No falls in past 3 months (0 pts) Confusion or Disorientation No (0 pts) Intoxicated or Sedated No (0 pts) Impaired Gait No (0 pts) Mobility Assist Device Used No (0 pt) Altered Elimination No (0 pt) Score/Fall Risk Level 0 - 2 = Low Risk. Abuse screen: Denies threats or abuse. Nutritional screening: No deficits noted. Tuberculosis screening: No symptoms or risk factors identified. Assessment: 14:00 General: Appears uncomfortable, Behavior is calm, cooperative. Pain: Complains of pain aa5 in right foot Pain does not radiate. Quality of pain is described as throbbing, Pain began 2 hours ago. Neuro: Level of Consciousness is awake, alert, obeys commands, Oriented to person, place, time, situation. Cardiovascular: Heart tones S1 S2 present Rhythm is regular. Respiratory: Airway is patent Respiratory effort is even, unlabored, Respiratory pattern is regular, symmetrical. GI: No signs and/or symptoms were reported involving the gastrointestinal system. : No signs and/or symptoms were reported regarding the genitourinary system. EENT: No signs and/or symptoms were reported regarding the EENT system. Derm: Skin is pink, warm \T\ dry. Musculoskeletal: Range of motion: intact in all extremities. Injury Description: Laceration sustained to dorsum of right foot is clean, not bleeding, approximately 1in long was sustained 1-2 hours ago. is bleeding no active bleeding noted. 15:10 Reassessment: Patient is alert, oriented x 3, equal unlabored respirations, skin aa5 warm/dry/pink. 15:10 Reassessment: Wound dressed with non-adherent dressing and tape. Post-op shoe applied. .aa5 Vital Signs: 13:34 BP 157 / 78; Pulse 79; Resp 16; Temp 98.4; Pulse Ox 99% ; iw ED Course: 12:51 Patient arrived in ED. am2 12:52 Vadim Crockett MD is Private Physician. am2 13:25 Jennyfer Moreau FNP-C is [facility]. snw 13:25 Figueroa Suarez MD is Attending Physician. snw 13:35 Triage completed. iw 13:35 Arm band placed on. iw 13:48 Radha Mckeon, VENECIA is Primary Nurse. aa5 15:10 No provider procedures requiring assistance completed. Patient did not have IV access aa5 during this emergency room visit. Administered Medications: 14:06 Drug: Hibiclens Topical Liquid 4 % 1 application Route: Topical; Site: affected area; aa5 14:30 Drug: Lidocaine Infiltration (1 %) 1 vials {Note: administered by OFFICE MESSENGER HELPER for laceration aa5 repair .} Volume: 20 ml; Route: Infiltration; 14:35 Drug: [place] PO 5 mg-325 mg 1 tabs Route: PO; aa5 15:10 Follow up: Response: No adverse reaction aa5 15:00 Drug: Boostrix Tdap IM 0.5 ml Route: IM; Site: left deltoid; aa5 15:10 Follow up: Response: No adverse reaction aa5 Outcome: 14:41 Discharge ordered by . nate 15:16 Patient left the ED. iw Signatures: Jennyfer Moreau, ORDNANCE TRUCK INSTALLATION SUPERVISOR-C ORDNANCE TRUCK INSTALLATION SUPERVISOR-Csnw Aurea Schulz RN RN iw Radha Mckeon RN RN aa5 Maggie Mazariegos am2 Corrections: (The following items were deleted from the chart) 13:35 13:34 Resp 16bpm; Pulse Ox 99%; Temp 98.4F; iw iw
[2023-03-01] MEDS ORDERED: TDAP (DIPHTH,PERTUSS(ACELL),TET VAC) 0.5 ML VIAL IMVAC ONE (15:07)
[2023-03-01 15:21] VITALS: BP 157/78; TEMP 98.4; O2SAT 99
== END 2023-03-01 15:16 | disposition home or self-care (01) ==
LOC: ER 12:50
PROC: 0LQV0ZZ Repair Right Foot Tendon, Open Approach (ICD-10-PCS; principal; 2023-03-01)
DX: S91.311A Laceration without foreign body, right foot, initial encounter (principal); I10 Essential (primary) hypertension
CPT/HCPCS: 28208; J2001; 96372; 99284

== ENCOUNTER 2023-03-15 09:15 | Emergency (ER) | payer OTHER, BC ==
--- NOTE | 2023-03-15 09:36 | EDPHYS ---
Physician Documentation [facility] Name: Court Louise Age: 67 yrs Sex: Female : 1955 Arrival Date: 03/15/2023 Time: 09:15 Bed 12 Private MD: Figueroa Colindres HPI: 03/15 09:51 This 67 yrs old Female presents to ER via Ambulatory with complaints of sb4 Stiches removed. 09:51 The patient has sutures on the right foot. Previous treatment: The patient was sb4 initially treated 14 day(s) ago, the care was rendered at [facility]. Sutures/aura progress: The patient has no c/o's. The wound is well-healing with no redness, swelling, discharge, or dehiscence reported. Historical: - Allergies: 09:26 No Known Allergies; kl - PMHx: 09:26 High Cholesterol; Hypertension; kl - PSHx: 09:26 None; kl - Immunization history:: Client reports receiving the 2nd dose of the Covid vaccine. - Social history:: Smoking status: Patient denies any tobacco usage or history of. ROS: 09:51 Constitutional: Negative for fever, chills, and weight loss. sb4 09:51 Skin: Positive for laceration(s). 09:51 All other systems are negative. Exam: 09:51 Constitutional: This is a well developed, well nourished patient who is awake, alert, sb4 and in no acute distress. Head/Face: Normocephalic, atraumatic. Eyes: Extra-ocular motions intact. Periorbital areas with no swelling, redness, or edema. MS/ Extremity: Pulses equal, no cyanosis. Neurovascular intact. Full, normal range of motion. 09:51 Skin: Wound recheck: Suture laceration closure: the wound is healing well, no evidence of dehiscence, no drainage, no erythema, no swelling. Vital Signs: 09:22 BP 130 / 73; Pulse 65; Resp 18; Temp 98.2; Pulse Ox 100% ; Weight 83.91 kg; Height 5 kl ft. 4 in. ; Pain 0/10; 09:22 Body Mass Index 31.75 (83.91 kg, 162.56 cm) kl 09:22 Pain Scale: Adult kl Procedures: 09:51 Suture/Staple removal: Removed 5 sutures, from right foot, site appears well healed, sb4 Patient tolerated well. MDM: 09:18 Patient medically screened. sb4 09:51 Data reviewed: vital signs, nurses notes, and as a result, I will discharge patient. sb4 Administered Medications: No medications were administered Disposition Summary: 03/15/23 09:36 Discharge Ordered Location: Home sb4 Condition: Stable sb4 Diagnosis - Encounter for removal of sutures sb4 Followup: sb4 - With: Vadim Crockett MD - When: - Reason: Recheck today's complaints, Continuance of care, Re-evaluation by your physician Discharge Instructions: - Discharge Summary Sheet sb4 - Suture Removal, Care After sb4 Forms: - Medication Reconciliation Form sb4 - Thank You Letter sb4 - Antibiotic Education sb4 - Prescription Opioid Use sb4 - [email or web address] sb4 Signatures: Rosemary Perez RN RN Deepika Lira PA-C PA-C sb4
--- NOTE | 2023-03-15 09:36 | ER ---
Nurse's Notes [facility] Name: Court Louise Age: 67 yrs Sex: Female : 1955 Arrival Date: 03/15/2023 Time: 09:15 Bed 12 Private MD: Diagnosis: Encounter for removal of sutures Presentation: 03/15 09:22 Chief complaint: Patient states: Needs stitches removed from right foot. Gotten 2 weeks kl ago. Coronavirus screen: Vaccine status: Patient reports receiving the 2nd dose of the covid vaccine. Ebola Screen: Patient denies travel to an Ebola-affected area in the 21 days before illness onset. Initial Sepsis Screen: Does the patient meet any 2 criteria? No. Patient's initial sepsis screen is negative. Does the patient have a suspected source of infection? No. Patient's initial sepsis screen is negative. Risk Assessment: Do you want to hurt yourself or someone else? Patient reports no desire to harm self or others. Onset of symptoms. 09:22 Method Of Arrival: Ambulatory 09:22 Acuity: TORIBIO 5 kl Triage Assessment: :27 General: Appears in no apparent distress. comfortable, Behavior is calm, cooperative, nj1 appropriate for age. Pain: Denies pain. Neuro: Level of Consciousness is awake, alert, obeys commands, Oriented to person, place, time, situation. Cardiovascular: Patient's skin is warm and dry. Respiratory: Airway is patent Respiratory effort is even, unlabored. Historical: - Allergies: 09:26 No Known Allergies; kl - PMHx: 09:26 High Cholesterol; Hypertension; kl - PSHx: 09:26 None; kl - Immunization history:: Client reports receiving the 2nd dose of the Covid vaccine. - Social history:: Smoking status: Patient denies any tobacco usage or history of. Screenin:27 [facility] ED Fall Risk Assessment (Adult) History of falling in the last 3 months, nj1 including since admission No falls in past 3 months (0 pts) Confusion or Disorientation No (0 pts) Intoxicated or Sedated No (0 pts) Impaired Gait No (0 pts) Mobility Assist Device Used No (0 pt) Altered Elimination No (0 pt) Score/Fall Risk Level 0 - 2 = Low Risk Oriented to surroundings, Maintained a safe environment, Hourly rounding (assess needs \T\ fall precautionary measures) done. Abuse screen: Denies threats or abuse. Denies injuries from another. Nutritional screening: No deficits noted. Tuberculosis screening: No symptoms or risk factors identified. Assessment: 09:45 General: See triage assessment. hb Vital Signs: 09:22 BP 130 / 73; Pulse 65; Resp 18; Temp 98.2; Pulse Ox 100% ; Weight 83.91 kg; Height 5 kl ft. 4 in. ; Pain 0/10; 09:22 Body Mass Index 31.75 (83.91 kg, 162.56 cm) kl 09:22 Pain Scale: Adult kl ED Course: 09:17 Patient arrived in ED. ts1 09:18 Deep[facility] Fitzpatrick [facility]-C [facility]. sb4 09:18 Figueroa Suarez MD is Attending Physician. sb4 09:26 Triage completed. kl 09:26 Arm band placed on right wrist. kl 09:28 Patient has correct armband on for positive identification. Bed in low position. Call nj1 light in reach. Adult w/ patient. 09:35 Vadim Crockett MD is Referral Physician. sb4 09:45 No provider procedures requiring assistance completed. Patient did not have IV access hb during this emergency room visit. Administered Medications: No medications were administered Medication: 09:45 VIS not applicable for this client. hb Outcome: 09:36 Discharge ordered by . sb4 09:57 Discharged to home ambulatory, with significant other. hb 09:57 Condition: stable hb 09:57 Discharge instructions given to patient, Instructed on discharge instructions, follow up and referral plans. medication usage, Demonstrated understanding of instructions, follow-up care, medications. 09:57 Patient left the ED. hb Signatures: Rosemary Perez RN Raquel Gentile RN RN Deepika Fitzpatrick PA-C PA-C sb4 Elle Lea RN RN nj1 Madhuri Brunson PAS PAS ts1 Corrections: (The following items were deleted from the chart) 09:26 09:22 Pulse 65bpm; Resp 18bpm; Pulse Ox 100%; Temp 98.2F; 83.91 kg; Height 5 ft. 4 in.; BMI: 31.7; Pain 0/10, Adult; kl
[2023-03-15 10:06] VITALS: BP 130/73; TEMP 98.2; O2SAT 100
== END 2023-03-15 09:57 | disposition home or self-care (01) ==
LOC: ER 09:15
DX: Z48.02 Encounter for removal of sutures (principal)
CPT/HCPCS: 99282

== ENCOUNTER 2023-07-29 10:30 | Emergency (ER) | payer OTHER, BC ==
--- OUTSIDE RECORDS SUMMARY | 2023-07-29 10:36 | XMS REPORT | Continuity of Care Document ---
:1955 Author Organization [facility] t Address [address] [facility] [address] [place] [address] Care Team Providers Name Role Phone Vadim Alejo Primary Care Physician Hunter Casper MD Attending Clinician HUNTER CASPER Attending Clinician Unavailable Doctor Unassigned, [place] Attending Clinician Unavailable Hunter Casper MD Admitting Clinician HUNTER CASPER Admitting Clinician Unavailable Payers Payer Name Policy Type Policy Number Effective Date Expiration Date S ource Problems This patient has no known problems. Allergies, Adverse Reactions, Alerts Allergy Allergy Status Severity Reaction(s) Onset Inactive Treating Comm ents Source Name Type Date Date Clinician NO KNOWN Drug Active Univers ALLERGIE Class ity of S [facility] Social History Social Habit Start Date Stop Date Quantity Comments Source Gender identity [facility] Sexual orientation [facility] Social 2023-05-21 2023-05-21 Univers ity of function 00:00:00 00:00:00 [facility] Tobacco use and 2023-04-30 2023-04-30 Smokeless Universit y of exposure 00:00:00 00:00:00 tobacco non-user [facility] Sex Assigned At [birth year] Universit y of 00:00:00 00:00:00 [facility] Smoking Status Start Date Stop Date Source Never smoked tobacco [facility] Medications Ordered Filled Start Stop Current Ordering Indication Dosage Frequency Signature Comments Components Source Medication Medication Date Date Medication? Clinician (SIG) Name Name neomycin-po 2022- No PRN, Unive rs lymyxin-dex 05-21 Starting ity of amethasone 18:58: 19[place]02 [place] ([place]ROL[place] 00 :33 05/21/23 at [facility] ical 3.5 1358, Branch mg/g-10,000 Until Fri unit/g-0.1 05/21/23 at % 1402, ophthalmic Routine, ointment Intra-op sodium 2022- No PRN, Univers chloride 05-21 Starting ity of (NS) 18:53: 19:02 on Fri [place] injection 00 :33 05/21/23 at [facility] merlin 1353, Branch Until Fri05/21/23 at 1402, Routine, Intra-op dexamethaso 2022- No PRN, Unive rs ne 05-21 Starting ity of (DECADRON 18:53: 19:02 on Fri [place] PHOSPHATE) 00 :33 05/21/23 at [facility] ical injection 1353, Branch Until Fri05/21/23 at 1402, Routine, Intra-op ceFAZolin 2022- No PRN, Univers (ANCEF) 05-21 Starting ity of injection 18:53: 19:02 on Fri 00 :33 05/21/23 at Medical 1353, Branch Until Fri05/21/23 at 1402, MAX, Intra-op carbachoL 2022- No PRN, Univers (MIOSTAT) 05-21 Starting ity o f 0.01 % 18:52: 19:02 on Fri intraocular 00 :33 05/21/23 at [place] injection 1352, Branch Until Fri05/21/23 at 1402, Routine, Intra-op EPINEPHrine 2022- No PRN, Unive rs 1:1,000 (1 05-21 Starting ity of mg/mL) 18:41: 19:02 on Fri (ADRENALIN) 00 :33 05/21/23 at [place] dical injection 1341, Branch Until Fri05/21/23 at 1402, Routine, Intra-op chondroitin 2022- No PRN, Unive rs sulf-sod 05-21 Starting ity of hyaluronate 18:41: 19:02 on Fri [place] (DUOVISC 00 :33 05/21/23 at Medic al VISCO 1341, Branch ELASTIC) Until Fri intraocular 05/21/23 at injection 1402, Routine, Intra-op balanced 2022- No PRN, Univers salt irrig 05-21 Starting ity of soln comb1 18:41: 19:02 on Fri [place] (BSS PLUS) 00 :33 05/21/23 at Med ical ophthalmic 1341, Branch solution Until Fri 500 mL bag 05/21/23 at 1402, Routine, Intra-op water for 2022- No PRN, Univers irrigation 05-21 Starting ity of irrigation 18:34: 19:02 on Fri [place] solution 00 :33 05/21/23 at Medic al 1334, Branch Until Fri05/21/23 at 1402, Routine, Intra-op Hyaluronida 2022- No PRN, [facility] rs se, Human 05-21 Starting ity o f Recomb. 18:30: 19:02 on Fri [place] (HYLENEX) 00 :33 05/21/23 at Medi merlin injection 1330, Branch Until Fri05/21/23 at 1402, Routine, Intra-op eye block 2022- No PRN, Univers syringe 11 05-21 Starting ity of mL 18:30: 19:02 on Wed [place] 00 :33 05/21/23 at Medical 1330, Branch Until Fri05/21/23 at 1402, Intra-op lactated 2022- No 1000mL at 42 [facility] rs ringers IV 05-21 mL/hr, ity of infusion 17:00: 16:59 1,000 mL, [place] 1,000 mL 00 :00 IV Medical Infusion, Branch ONCE, 1 dose, On Fri05/21/23 at 1200, Routine, DSU Pre-op lactated 2022- No 1000mL at 42 [facility] rs ringers IV 05-21 mL/hr, ity of infusion 17:00: 16:59 1,000 mL, [place] 1,000 mL 00 :00 IV Medical Infusion, Branch ONCE, 1 dose, On Fri05/21/23 at 1200, Routine, DSU Pre-op atorvastati 0 Yes 80mg Take 1 Univ ers n 80 mg 9-13 tablet by ity of tablet 15:58: mouth in [place] [address] the Medical morning. Branch amLODIPine- 0 Yes 1{capsu Take 1 U nivers benazepriL 9-13 le} capsule by ity of 5-20 mg per 15:58: mouth in [place] capsule the Medical morning. Branch levothyroxi 0 Yes 100ug Take 1 Uni vers ne 100 mcg 9-13 tablet by ity of tablet 15:58: mouth [place] [address] every Medical morning. Branch aspirin 81 0 Yes 81mg Take 1 Unive rs mg EC 9-13 tablet by ity of tablet 15:58: mouth in [place] [address] the Medical morning. Branch coQ10, Yes 1{capsu Take 1 Univer s ubiquinol, 9-13 le} capsule by ity of 100 mg Cap 15:58: mouth in [place] 27 the Medical morning. Branch cholecalcif Yes 1000U Take 1 Uni vers harrison, 9-13 tablet by ity of vitamin D3, 15:58: mouth in [place] (VITAMIN 27 the Medical D3) 25 mcg morning. Branc h (1,000 unit) tablet tiZANidine Yes 4mg Take 1 Unive rs 4 mg 9-13 capsule by ity of capsule 15:58: mouth 3 [place] [address] (three) Medical times Branch daily as needed for Muscle Spasms. ezetimibe 0 Yes 10mg Take 1 Univer s 10 mg 9-13 tablet by ity of tablet 15:58: mouth [place] [address] every Medical morning. Branch atorvastati 0 Yes 80mg Take 1 Univ ers n 80 mg 9-13 tablet by ity of tablet 15:58: mouth in [place] [address] the Medical morning. Branch amLODIPine- 0 Yes 1{capsu Take 1 U nivers benazepriL 9-13 le} capsule by ity of 5-20 mg per 15:58: mouth in [place] capsule 27 the Medical morning. Branch levothyroxi 2022-0 Yes 100ug Take 1 Uni vers ne 100 mcg 9-13 tablet by ity of tablet 15:58: mouth 27 every Medical morning. Branch aspirin 81 0 Yes 81mg Take 1 Unive rs mg EC 9-13 tablet by ity of tablet 15:58: mouth in [place] 27 the Medical morning. Branch coQ10, Yes 1{capsu Take 1 Univer s ubiquinol, 9-13 le} capsule by ity of 100 mg Cap 15:58: mouth in [place] 27 the Medical morning. Branch cholecalcif Yes 1000U Take 1 Uni vers harrison, 9-13 tablet by ity of vitamin D3, 15:58: mouth in [place] (VITAMIN 27 the Medical D3) 25 mcg morning. Branc h (1,000 unit) tablet tiZANidine Yes 4mg Take 1 Unive rs 4 mg 9-13 capsule by ity of capsule 15:58: mouth 3 [place] 27 (three) Medical times Branch daily as needed for Muscle Spasms. ezetimibe Yes 10mg Take 1 Univer s 10 mg 9-13 tablet by ity of tablet 15:58: mouth [place] 27 every Medical morning. Branch sodium 2022- No PRN, Univers chloride 05-07 Starting ity of (NS) 18:01: 18:07 on Fri injection 00 :19 05/07/23 at Medi merlin 1301, Branch Until Fri05/07/23 at 1307, Routine, Intra-op neomycin-po 2022- No PRN, Unive rs lymyxin-dex 05-07 Starting ity of amethasone 18:01: 18:07 on [place] (MAXITROL) 00 :19 05/07/23 at Med ical 3.5 1301, Branch mg/g-10,000 Until Fri unit/g-0.1 05/07/23 at % 1307, ophthalmic Routine, ointment Intra-op dexamethaso 2022- No PRN, Unive rs ne 05-07 Starting ity of (DECADRON 18:01: 18:07 on Fri PHOSPHATE) 00 :19 05/07/23 at Med ical injection 1301, Branch Until Fri05/07/23 at 1307, Routine, Intra-op ceFAZolin 2022- No PRN, Univers (ANCEF) 05-07 Starting ity of injection 18:01: 18:07 on Fri [place] 00 :19 05/07/23 at Medical 1301, Branch Until Fri05/07/23 at 1307, MAX, Intra-op carbachoL 2022- No PRN, Univers (MIOSTAT) 05-07 Starting ity o f 0.01 % 18:00: 18:07 on Fri [place] intraocular 00 :19 05/07/23 at Vt dical injection 1300, Branch Until Fri05/07/23 at 1307, Routine, Intra-op chondroitin 2022- No PRN, Unive rs sulf-sod 05-07 Starting ity of hyaluronate 17:47: 18:07 on Fri [place] (DUOVISC 00 :19 05/07/23 at Medic al VISCO 1247, Branch ELASTIC) Until Fri intraocular 05/07/23 at injection 1307, Routine, Intra-op water for 2022- No PRN, Univers irrigation 05-07 Starting ity of irrigation 17:41: 18:07 on Fri [place] solution 00 :19 05/07/23 at Medic al 1241, Branch Until Fri05/07/23 at 1307, Routine, Intra-op Hyaluronida 2022- No PRN, Unive rs se, Human 05-07 Starting ity o f Recomb. 17:37: 18:07 on Fri (HYLENEX) 00 :19 05/07/23 at [facility] merlin injection 1237, Branch Until Fri05/07/23 at 1307, Routine, Intra-op eye block 2022- No PRN, Univers syringe 11 05-07 Starting ity of mL 17:36: 18:07 on Fri 00 :19 05/07/23 at Medical 1236, Branch Until Fri05/07/23 at 1307, Intra-op EPINEPHrine 2022- No PRN, Unive rs 1:1,000 (1 05-07 Starting ity of mg/mL) 17:27: 18:07 on Fri (ADRENALIN) 00 :19 05/07/23 at Vt dical injection 1227, Branch Until Fri05/07/23 at 1307, Routine, Intra-op balanced 2022-0 2023- No PRN, Univers salt irrig 05-07 Starting ity of soln comb1 17:26: 18:07 [place] Fri [place] (BSS PLUS) 00 :19 05/07/23 at [facility] ical ophthalmic 1226, Branch solution Until Fri 500 mL bag 05/07/23 at 1307, Routine, Intra-op atorvastati Yes 80mg Take 1 Univ ers n 80 mg 8-30 tablet by ity of tablet 13:39: mouth in [place] [address] the Medical morning. Branch amLODIPine- Yes 1{capsu Take 1 U nivers benazepriL 8-30 le} capsule by ity of 5-20 mg per 13:39: mouth in [place] capsule 27 the Medical morning. Branch levothyroxi 0 Yes 100ug Take 1 Uni vers ne 100 mcg 8-30 tablet by ity of tablet 13:39: mouth [place] every Medical morning. Branch aspirin 81 0 Yes 81mg Take 1 Unive rs mg EC 8-30 tablet by ity of tablet 13:39: mouth in [place] [address] the Medical morning. Branch coQ10, Yes 1{capsu Take 1 Univer s ubiquinol, 8-30 le} capsule by ity of 100 mg Cap 13:39: mouth in [place] 27 the Medical morning. Branch cholecalcif 0 Yes 1000U Take 1 Uni vers [place], 8-30 tablet by ity of vitamin D3, 13:39: mouth in [place] (VITAMIN 27 the Medical D3) 25 mcg morning. Branc h (1,000 unit) tablet tiZANidine 0 Yes 4mg Take 1 Unive rs 4 mg 8-30 capsule by ity of capsule 13:39: mouth 3 [place] 27 (three) Medical times Branch daily as needed for Muscle Spasms. ezetimibe 0 Yes 10mg Take 1 Univer s 10 mg 8-30 tablet by ity of tablet 13:39: mouth [place] 27 every Medical morning. Branch atorvastati Yes 80mg Take 1 Univ ers n 80 mg 8-30 tablet by ity of tablet 13:39: mouth in [place] 27 the Medical morning. Branch amLODIPine- 0 Yes 1{capsu Take 1 U nivers benazepriL 8-30 le} capsule by ity of 5-20 mg per 13:39: mouth in [place] capsule 27 the Medical morning. Branch levothyroxi 0 Yes 100ug Take 1 Uni vers ne 100 mcg 8-30 tablet by ity of tablet 13:39: mouth [place] [address] every Medical morning. Branch aspirin 81 2022-0 Yes 81mg Take 1 Unive rs mg EC 8-30 tablet by ity of tablet 13:39: mouth in [place] [address] the Medical morning. Branch coQ10, 0 Yes 1{capsu Take 1 Univer s ubiquinol, 8-30 le} capsule by ity of 100 mg Cap 13:39: mouth in [place] 27 the Medical morning. Branch cholecalcif 0 Yes 1000U Take 1 Uni vers [place], 8-30 tablet by ity of vitamin D3, 13:39: mouth in [place] (VITAMIN 27 the Medical D3) 25 mcg morning. Branc h (1,000 unit) tablet tiZANidine 0 Yes 4mg Take 1 Unive rs 4 mg 8-30 capsule by ity of capsule 13:39: mouth 3 [place] [address] (three) Medical times Branch daily as needed for Muscle Spasms. ezetimibe 0 Yes 10mg Take 1 Univer s 10 mg 8-30 tablet by ity of tablet 13:39: mouth [place] [address] every Medical morning. Branch atorvastati 0 Yes 80mg Take 1 Univ ers n 80 mg 8-30 tablet by ity of tablet 13:39: mouth in [place] [address] the Medical morning. Branch amLODIPine- 0 Yes 1{capsu Take 1 U nivers benazepriL 8-30 le} capsule by ity of 5-20 mg per 13:39: mouth [place] capsule 27 the Medical morning. Branch levothyroxi 0 Yes 100ug Take 1 Uni vers ne 100 mcg 8-30 tablet by ity of tablet 13:39: mouth [place] every Medical morning. Branch aspirin 81 2022-0 Yes 81mg Take 1 Unive rs mg EC 8-30 tablet by ity of tablet 13:39: mouth in [place] [address] the Medical morning. Branch coQ10, 2023-0 Yes 1{capsu Take 1 Univer s ubiquinol, 8-30 le} capsule by ity of 100 mg Cap 13:39: mouth in [place] 27 the Medical morning. Branch cholecalcif Yes 1000U Take 1 Uni vers [place], 8-30 tablet by ity of vitamin D3, 13:39: mouth in [place] (VITAMIN 27 the Medical D3) 25 mcg morning. Branc h (1,000 unit) tablet tiZANidine Yes 4mg Take 1 Unive rs 4 mg 8-30 capsule by ity of capsule 13:39: mouth 3 [place] 27 (three) Medical times [place] daily as needed for Muscle Spasms. ezetimibe Yes 10mg Take 1 Univer s 10 mg 8-30 tablet by ity of tablet 13:39: mouth [place] 27 every Medical morning. Branch atorvastati 2022- No 80mg Take 1 Uni vers n 80 mg 8-30 08-30 tablet by ity of tablet 13:07: 00:00 mouth [place] 19 :00 every Medical morning. Branch atorvastati 2022- No 80mg Take 1 Uni vers n 80 mg 8-30 08-30 tablet by ity of tablet 13:07: 00:00 mouth [place] 19 :00 every Medical morning. [place] Vital Signs Vital Name Observation Time Observation Value Comments Source Systolic blood 2023-05-21 19:21:00 131 mm[Hg] Univer sity of pressure [facility] Diastolic blood 2023-05-21 19:21:00 57 [facility]Hg[facility] Oxygen saturation in 2023-05-21 19:21:00 99 /min [facility] Arterial blood by [facility] Pulse oximetry Branch Heart rate 2023-05-21 19:20:00 64 /min [facility] Respiratory rate 2023-05-21 19:20:00 13 /min [facility] Body temperature 2023-05-21 19:02:00 36.56 [place] [facility] Body height 2023-05-15 15:30:00 162.6 cm [facility] Body weight 2023-05-15 15:30:00 81.647 kg [facility] BMI 2023-05-15 15:30:00 30.90 kg/m2 [facility] Systolic blood 2023-05-21 17:00:00 143 mm[Hg] Univer sity of pressure [facility] Diastolic blood 2023-05-21 17:00:00 76 mm[Hg] Unive rsity of pressure [facility] Heart rate 2023-05-21 17:00:00 66 /min [facility] Body temperature 2023-05-21 17:00:00 36.22 [place] [facility] Respiratory rate 2023-05-21 17:00:00 19 /min Univ [facility] Oxygen saturation in 2023-05-21 17:00:00 99 /min University of Arterial blood by [facility] [place] Pulse oximetry Branch Body height 2023-05-15 15:30:00 162.6 cm [facility] Body weight 2023-05-15 15:30:00 81.647 kg [facility] BMI 2023-05-15 15:30:00 30.90 kg/m2 [facility] Systolic blood 2023-05-07 18:20:00 147 mm[Hg] Univer sity of pressure [facility] Diastolic blood 2023-05-07 18:20:00 53 mm[Hg] Unive rsity of pressure [facility] Body temperature 2023-05-07 18:20:00 36.33 [place] [facility] Respiratory rate 2023-05-07 18:20:00 11 /min Univ [facility] Oxygen saturation in 2023-05-07 18:20:00 98 /min University of Arterial blood by [facility] [place] Pulse oximetry Branch Heart rate 2023-05-07 18:10:00 69 /min [facility] Body height 2023-04-30 17:00:00 162.6 cm [facility] Body weight 2023-04-30 17:00:00 81.647 kg [facility] BMI 2023-04-30 17:00:00 30.90 kg/m2 [facility] Systolic blood 2023-05-07 16:17:00 142 mm[Hg] Univer sity of pressure [facility] Diastolic blood 2023-05-07 16:17:00 63 mm[Hg] [facility] Heart rate 2023-05-07 16:17:00 71 /min [facility] Body temperature 2023-05-07 16:17:00 36.61 [place] [facility] 2023-05-07 16:17:00 16 /min [facility] Oxygen saturation in 2023-05-07 16:17:00 98 /min [facility] Arterial blood by [facility] Pulse oximetry [place] Body height 2023-04-30 17:00:00 162.6 cm [facility] Body weight 2023-04-30 17:00:00 81.647 kg [facility] BMI 2023-04-30 17:00:00 30.90 kg/m2 [facility] Procedures Procedure Date / Time Performing Source Performed Clinician PHACOEMULSIFICATION OF 2023-05-21 Hunter Casper [facility] WITH INTRAOCULAR 18:20:00 [facility] [place] LENS IMPLANT PTERYGIUM EXCISION 2023-05-21 Hunter Casper [facility] 18:20:00 [facility] PHACOEMULSIFICATION OF 2023-05-07 Hunter Casper [facility] CATARACT WITH INTRAOCULAR 17:25:00 Medica l [place] LENS IMPLANT PATIENT QUESTIONNAIRE 2023-05-07 Doctor Unassigned, [facility] 05:01:00 [place] [facility] Encounters Start End Encounter Admission Attending Care Care Encounter Source Date/Time Date/Time Type Type Clinicians Facility Department ID 2023-05-21 2023-05-21 Hospital Santos [facility] [id number] [facility] 11:49:00 14:28:00 Encounter Hunter CUTLER [id number] [facility] 4.2.7.2.686 [facility] [id number] [facility] CENTER 071 Branch 2023-05-21 2023-05-21 Outpatient R VIKRAM CASPER OPH [id number] Univers 11:49:00 14:28:00 [facility] 2023-05-21 2023-05-21 Surgery [facility] [id number] Univers 12:27:00 13:01:00 Hunter Wood OMAYRA 350.1.13.10 ity [place]ICAL [id number] [facility] 020 Branch 2023-05-07 2023-05-07 [facility] [id number] Univers 10:57:00 13:27:00 Encounter Hunter CUTLER 350.1.13.10 ity [place]2.[place]ICAL [id number] [facility] 071 Branch 2023-05-07 2023-05-07 Outpatient R [facility] OPH [id number] Univers 10:57:00 13:27:00 HUNTER ity [facility] 2023-05-07 2023-05-07 Surgery [facility] [id number] Univers 11:44:00 12:18:00 Hunter NIEVESLETICIA 350.1.13.10 ity [place] 4[place] SUR[place]ICAL [id number] [facility] 020 Branch 2023-05-07 2023-05-07 Orders Doctor JONATHAN [id number] Univers 00:00:00 00:00:00 Only Unassigned, EMIR 350.1.13.10 ity of [facility] 4.2.7.2.686 [place] [id number] [place] [id number] Branch Results This patient has no known results. History and Physical Notes Date/Time Note Provider Source 2023-05-21 11:57:07 [id number]:57:07Formatting of this note [facility] might be different from the original.H&P UpdateH&P was reviewed and the patient was examined and there was no change in the patient's condition. 53492-2Gsfanpn and physical qhvuMW4253-69-83L50:57:17History and physical noteTXT1.2.840.950690.1.13.104.2.7.2.19241 9|[id number] for patient pgla17822-3Meraasu and physical noteLNUT[address] [id number] HGJMQNHOXOQRRNXP6813-03-96U74:57:171.2.840 .269827.1.72.3.15|1.2.840.981007.1.13.104. 2.7.2.727879_[id number] 2023-05-07 11:41:26 [id number]:41:26Formatting of this note [facility] might be different from the original.H&P UpdateH&P was reviewed and the patient was examined and there was no change in the patient's condition. 61997-2Wnirczz and physical bgfvPZ8435-61-40J64:41:35History and physical noteTXT1.2.840.222939.1.13.104.2.7.2.66545 9|[id number] for patient yehv02766-6Omeydiz and physical noteLNUT23 [address] [id number] VWZVPACWCFBCHSPJ0789-20-87M27:41:351.2.840 .984218.1.72.3.15|1.2.840.081551.1.13.104. 2.7.2.727879_[id number] Notes Date/Time Note Provider Source 2023-05-15 10:41:38 [id number]:41:38Formatting of this note [facility] might be different from the original.Images from the original note were not included.Your procedure is at [facility] on 05/21/23. The address is [address] [place] [address], [facility]. [facility] nursing staff will call you the workday before your procedure to let you know what time to arrive.On the day of your procedure, please go inside that door and check in at the desk.Please note: You may not travel home alone and that includes in a taxi or by bus. We must speak to your Responsible Adult (who will be picking you up) the morning of your procedure, before the start of your procedure. This person must be an adult over the age of 18 years of age. Do not eat any solid food after midnight the night before surgery. You may have sips of clear liquids such as water, gatorade, and sprite up until two hours before your scheduled procedure.You may take your medications with a sip of water as directed by physician. Anticoagulants will be per physician guidance. Medication Note(s)/Instructions: Will hold ASA as ordered by her MD. Pending screening, we may test for COVID. If a patient tests positive, their cases are cancelled and/or rescheduled. COVID SCREENING NOTE: Denies COVID symptoms, no testing required.Additional requests, questions, concerns:Patient verbalized understanding of pre-op instructions and voiced no further questions at this time. [id number] WfyzNR4240-86-17V90:43:13Nurse NoteTXT1.2.840.898495.1.13.104.2.7.2.91076 9|[id number] for patient uzdd48732-5YwtvDYJUVQASTF[address] Zx[id number] LAKBJZLIAVSYAQON0208-39-63B22:43:131.2.840 .711123.1.72.3.15|1.2.840.735889.1.13.104. 2.7.2.727879_[id number] 2023-04-30 12:27:55 [id number]:27:55Formatting of this note [facility] might be different from the original.Images from the original note were not included.Your procedure is at [facility] on 05/07/23. The address is [address] [place] [address], [address]. [facility] nursing staff will call you the workday before your procedure to let you know what time to arrive.On the day of your procedure, please go inside that door and check in at the desk.Please note: You may not travel home alone and that includes in a taxi or by bus. We must speak to your Responsible Adult (who will be picking you up) the morning of your procedure, before the start of your procedure. This person must be an adult over the age of 18 years of age. Do not eat any solid food after midnight the night before surgery. You may have sips of clear liquids such as water, gatorade, and sprite up until two hours before your scheduled procedure.You may take your medications with a sip of water as directed by physician. Anticoagulants will be per physician guidance. Medication Note(s)/Instructions:Will continue ASA per MD instruction.Pending screening, we may test for COVID. If a patient tests positive, their cases are cancelled and/or rescheduled. COVID SCREENING NOTE: Denies COVID symptoms, no testing required.Additional requests, questions, concerns:n/aPatient verbalized understanding of pre-op instructions and voiced no further questions at this time. 70431-6Hxmxr YioeQZ0130-38-54A06:28:46Nurse NoteTXT1.2.840.758712.1.13.104.2.7.2.72141 9|[id number] for patient eubu46126-1DsqwJEUJTVAZWU[address] Yg[id number] IECBGEFUWZMEJRFA3156-68-05U01:28:461.2.840 .611147.1.72.3.15|1.2.840.530896.1.13.104. 2.7.2.727879_[id number]"
--- NOTE | 2023-07-29 12:06 | RAD REPORT ---
EXAM DESCRIPTION: RAD - Chest Single View - 07/29/2023 11:48 am CLINICAL HISTORY: COUGH Chest pain. COMPARISON: CHEST PA AND LAT 2 VIEW dated 03/01/2014; CHEST SINGLE VIEW dated 01/02/2011; CHEST PA AND LAT 2 VIEW dated 04/17/1999 FINDINGS: Portable technique limits examination quality. The lungs are grossly clear. The heart is normal in size. No displaced fractures. IMPRESSION: No acute intrathoracic process suspected.
[2023-07-29] MEDS ORDERED: NA CHLORIDE 0.9% 1,000 ML ONE (12:17)
[2023-07-29] MEDS ORDERED: CEFTRIAXONE 1000 MG/VIAL ONE (12:17)
[2023-07-29 12:47] LABS: Calcium Oxalate Crystals- Ur Few /HPF (None Seen); Specific Gravity 1.006 (1.005-1.030); Urine Bacteria 20-50 /HPF (<20); Urine Bilirubin NEGATIVE (Negative); Urine Blood Negative (Negative); Urine Clarity Turbid (Clear); Urine Color Light-Yellow (Yellow); Urine Glucose NEGATIVE (Negative); Urine Mucus Slight /HPF (None Seen); Urine Protein NEGATIVE (Negative); Urine Urobilinogen Normal (Normal); Urine pH 5.5 (5.0-7.0)
[2023-07-29 12:59] LABS: Protime INR 0.96
[2023-07-29 13:00] LABS: Absolute Lymphocytes (CBC) 2.1 K/uL (0.7-4.9); Hematocrit 35.2 % (36.0-45.0); Lymphocytes % 28.1 % (15.3-44.8); MCV 85.3 fL (80-100); MPV 10.6 fL (7.6-11.3); Platelets 191 thou/uL (152-406); RBC Red Blood Cell Count 4.13 M/uL (3.86-4.86)
[2023-07-29 13:18] LABS: Albumin 3.7 g/dL (3.4-5.0); Bilirubin Direct 0.1 mg/dL (0-0.2); Bilirubin Indirect, Calculated 0.4 mg/dL (0.2-0.8); Bilirubin Total 0.5 mg/dL (0.2-1.0); Potassium 3.8 mEq/L (3.5-5.1); Protein, Total 7.8 g/dL (6.4-8.2)
[2023-07-29] MEDS ORDERED: CIPROFLOXACIN HCL 500 MG TAB ONE (13:30)
--- NOTE | 2023-07-29 13:52 | RAD REPORT ---
EXAM DESCRIPTION: CTAbdomen Pelvis W Contrast - 07/29/2023 1:34 pm CLINICAL HISTORY: ABD PAIN COMPARISON: No comparisons TECHNIQUE: CT of the abdomen and pelvis was performed. All CT scans are performed using dose optimization technique as appropriate and may include automated exposure control or mA/KV adjustment according to patient size. FINDINGS: Lower chest: No acute abnormality. Liver: No acute abnormality or suspicious lesions. Biliary: No biliary ductal dilatation. Stomach: No significant focal abnormality. Duodenum: No significant focal abnormality. Pancreas: No significant abnormality. Spleen: No significant abnormality. Adrenal: No suspicious lesions. Kidney/ureter: No hydronephrosis. No renal calculi. Too small to characterize and/or benign appearing renal lesions are noted. Retroperitoneum: No retroperitoneal adenopathy. Vascular: No aneurysm. Atherosclerosis Bowel: Normal appendix. No bowel obstruction .. Peritoneum: No ascites or free air. Bladder: Grossly unremarkable. Reproductive: 2.7 cm simple appearing left adnexal cyst. This has increased in size slightly since , previously measuring 1.6 cm. Despite the change in size, this is almost certainly benign. No foll ow-up imaging recommended. Bones: No acute fracture. Other: n/a IMPRESSION: No acute intra-abdominal or pelvic finding.
--- NOTE | 2023-07-29 14:01 | EDPHYS ---
Physician Documentation [facility] Name: Court Louise Age: 68 yrs Sex: Female : 1955 Arrival Date: 07/29/2023 Time: 10:30 Bed 5 Private MD: ED Physician Figueroa Suarez HPI: 07/29 12:43 This 68 yrs old Female presents to ER via Ambulatory with complaints of que Possible Kidney infection. 12:43 The patient complains of pain in the right mid back and right low back. The pain does que not radiate. Onset: The symptoms/episode began/occurred 2 day(s) ago. Modifying factors: The symptoms are alleviated by nothing. the symptoms are aggravated by nothing. Associated signs and symptoms: The patient has no apparent associated signs or symptoms. Severity of pain: At its worst the pain was mild in the emergency department the pain is unchanged. The patient has not experienced similar symptoms in the past. Historical: - Allergies: 11:00 No Known Allergies; nj1 - PMHx: 11:00 Hypertension; High Cholesterol; Hypothyroidism; nj1 - PSHx: 11:00 Operative procedure on knee; nj1 - Immunization history:: Client reports having NOT received the Covid vaccine. - Social history:: Smoking status: Patient denies any tobacco usage or history of. ROS: 12:46 Constitutional: Negative for fever, chills, and weight loss, Eyes: Negative for injury, que pain, redness, and discharge, ENT: Negative for injury, pain, and discharge, Neck: Negative for injury, pain, and swelling, Cardiovascular: Negative for chest pain, palpitations, and edema, Respiratory: Negative for shortness of breath, cough, wheezing, and pleuritic chest pain, Abdomen/GI: Negative for abdominal pain, nausea, vomiting, diarrhea, and constipation, : Negative for injury, bleeding, discharge, and swelling, MS/Extremity: Negative for injury and deformity, Skin: Negative for injury, rash, and discoloration, Neuro: Negative for headache, weakness, numbness, tingling, and seizure, Psych: Negative for depression, anxiety, suicide ideation, homicidal ideation, and hallucinations, Allergy/Immunology: Negative for hives, rash, and allergies, Endocrine: Negative for neck swelling, polydipsia, polyuria, polyphagia, and marked weight changes, Hematologic/Lymphatic: Negative for swollen nodes, abnormal bleeding, and unusual bruising, 12:46 Back: Positive for pain at rest, pain with movement, flank pain, on the right, Exam: 12:46 Constitutional: This is a well developed, well nourished patient who is awake, alert, que and in no acute distress. Head/Face: Normocephalic, atraumatic. Eyes: Pupils equal round and reactive to light, extra-ocular motions intact. Lids and lashes normal. Conjunctiva and sclera are non-icteric and not injected. Cornea within normal limits. Periorbital areas with no swelling, redness, or edema. ENT: Nares patent. No nasal discharge, no septal abnormalities noted. Tympanic membranes are normal and external auditory canals are clear. Oropharynx with no redness, swelling, or masses, exudates, or evidence of obstruction, uvula midline. Mucous membranes moist. Neck: Trachea midline, no thyromegaly or masses palpated, and no cervical lymphadenopathy. Supple, full range of motion without nuchal rigidity, or vertebral point tenderness. No Meningismus. Chest/axilla: Normal chest wall appearance and motion. Nontender with no deformity. No lesions are appreciated. Cardiovascular: Regular rate and rhythm with a normal S1 and S2. No gallops, murmurs, or rubs. Normal PMI, no JVD. No pulse deficits. Respiratory: Lungs have equal breath sounds bilaterally, clear to auscultation and percussion. No rales, rhonchi or wheezes noted. No increased work of breathing, no retractions or nasal flaring. Abdomen/GI: Soft, non-tender, with normal bowel sounds. No distension or tympany. No guarding or rebound. No evidence of tenderness throughout. Back: No spinal tenderness. No costovertebral tenderness. Full range of motion. Skin: Warm, dry with normal turgor. Normal color with no rashes, no lesions, and no evidence of cellulitis. MS/ Extremity: Pulses equal, no cyanosis. Neurovascular intact. Full, normal range of motion. Neuro: Awake and alert, GCS 15, oriented to person, place, time, and situation. Cranial nerves II-XII grossly intact. Motor strength 5/5 in all extremities. Sensory grossly intact. Cerebellar exam normal. Normal gait. Psych: Awake, alert, with orientation to person, place and time. Behavior, mood, and affect are within normal limits. 12:46 : CVA tenderness, on the right, Bladder: is normal, Rectal exam: is not applicable, Sexual behavior: the patient is not sexually active, Vital Signs: 10:58 BP 139 / 73; Pulse 72; Resp 18; Temp 97.6(O); Pulse Ox 100% ; Weight 83.91 kg; Height 5 nj1 ft. 4 in. ; Pain 0/10; 12:20 BP 125 / 69; Pulse 84; Resp 16; Pulse Ox 100% on R/A; mb9 14:04 BP 121 / 84; Pulse 65; Resp 16; Pulse Ox 100% on R/A; Pain 0/10; mb9 10:58 Body Mass Index 31.75 (83.91 kg, 162.56 cm) nj1 10:58 Pain Scale: Adult nj1 14:04 Pain Scale: Adult mb9 NIH Stroke Scale Scores: 12:46 NIHSS Score: 0 que MDM: 10:43 Patient medically screened. [facility] 12:47 Differential diagnosis: nephrolithiasis, pyelonephritis, UTI, diverticulitis, viral que Infection, bacterial infection, URI, bronchitis, pneumonia UTI, gastroenteritis. Data reviewed: vital signs, nurses notes, lab test result(s), EKG, radiologic studies, CT scan, plain films. Consideration of Admission/Observation Escalation of care including admission/observation considered. I considered the following discharge prescriptions or medication management in the emergency department Medications were administered in the Emergency Department. See MAR. Test considered but Not performed: Ultrasound no abd usg. Historians other than the Patient: pt well informed. Care significantly affected by the following chronic conditions: Hypertension, hypothyroid, high choleesterol. Counseling: I had a detailed discussion with the patient and/or guardian regarding the historical points, exam findings, and any diagnostic results supporting the discharge/admit diagnosis, the presence of at least one elevated blood pressure reading (>120/80) during this emergency department visit, lab results, the need for outpatient follow up. 07/29 10:49 Order name: Basic Metabolic Panel; Complete Time: 13:33 que 07/29 10:49 Order name: CBC with Diff; Complete Time: 13:02 [facility] 07/29 10:49 Order name: LFT's; Complete Time: 13:33 07/29 10:49 Order name: Magnesium; Complete Time: 13:33 [facility] 07/29 10:49 Order name: NT PRO-BNP; Complete Time: 13:33 [facility] 07/29 10:49 Order name: PT-INR; Complete Time: 13:02 [facility] 07/29 10:49 Order name: Troponin HS; Complete Time: 13:33 [facility] 07/29 10:49 Order name: Blood Culture Adult (2) 07/29 10:49 Order name: Lactate w/ 2H reflex if indic.; Complete Time: 13:33 [facility] 07/29 10:49 Order name: Urinalysis w/ reflexes; Complete Time: 13:02 [facility] 07/29 10:49 Order name: Urine Culture 07/29 10:49 Order name: XRAY Chest (1 view); Complete Time: 12:12 [facility] 07/29 10:49 Order name: CT Abd/Pelvis - IV Contrast Only 07/29 10:49 Order name: EKG; Complete Time: 10:49 [facility] 07/29 10:49 Order name: Cardiac monitoring; Complete Time: 12:02 [facility] 07/29 10:49 Order name: EKG - Nurse/Tech; Complete Time: 12:20 [facility] 07/29 10:49 Order name: IV Saline Lock; Complete Time: 12:20 [facility] 07/29 10:49 Order name: Labs collected and sent; Complete Time: 12:02 [facility] 07/29 10:49 Order name: O2 Per Protocol; Complete Time: 12:02 [facility] 07/29 10:49 Order name: O2 Sat Monitoring; Complete Time: 12:02 [facility] Administered Medications: 12:37 Drug: NS 0.9% IV 1000 ml IV at 1 bolus Per protocol; 1000 mL bolus Route: IV; Rate: 1 mb9 bolus; Site: left antecubital; 12:56 Drug: Rocephin IV 1 grams IV at per protocol once; Given slow IV push per pharmacy mb9 instructions Route: IV; Rate: per protocol; Site: left antecubital; 13:21 Drug: Ciprofloxacin PO 500 mg PO once Route: PO; mb9 14:03 Follow up: Response: No adverse reaction mb9 Disposition Summary: 07/29/23 14:01 Discharge Ordered Notes: Location: Home que Problem: new que Symptoms: have improved que Condition: Stable que Diagnosis - UTI/ Urinary tract infection, site not specified que - Low back pain que Followup: que - With: Private Physician - When: 2 - 3 days - Reason: Recheck today's complaints, Continuance of care, Re-evaluation by your physician Discharge Instructions: - Discharge Summary Sheet que - Dysuria que - Musculoskeletal Pain que - Urinary Tract Infection, Adult que - Urinary Tract Infection, Adult, [id number] [facility] Forms: - Medication Reconciliation Form [facility] - Thank You Letter que - Antibiotic Education que - Prescription Opioid Use que - Patient Portal Instructions [facility] - Leadership Thank You Letter [facility] Prescriptions: - Cipro 250 mg Oral Tablet - take 2 tablets ORAL route every 12 hours; 20 tablet; Refills: 0, Product [facility] Selection Permitted - Ibuprofen 600 mg Oral tablet - take 1 tablet ORAL route every 6 hours As needed take with food; 21 tablet; que Refills: 0, Product Selection Permitted - Pyridium 200 mg Oral Tablet - take 1 tablet ORAL route every 8 hours for 3 days; 9 tablet; Refills: 0, [facility] Product Selection Permitted NIH Stroke Scale - NIH Stroke Score Date: 07/29/2023 Time: 12:46 Total Score = 0 10. Dysarthria (speech clarity - read or repeat words) - 0(Normal) 11. Extinction and Inattention (visual/tactile/auditory/spatial/personal) - 0(No abnormality) 1a. Level of Consciousness (LOC) - 0(Alert) 1b. Level of Consciousness (LOC) (Month \T\ Age) - 0(Both) 1c. LOC Commands (Open \T\ Closes Eyes/Audit Lead) - 0(Both) 2. Best Gaze (Lateral Gaze Paresis) - 0(Normal) 3. Visual Field Loss - 0(No visual loss) 4. Facial Palsy - 0(Normal) 5a. Left Arm: Motor (10-second hold) - 0(No drift) 5b. Right Arm: Motor (10-second hold) - 0(No drift) 6a. Left Leg: Motor (5-second hold - always test supine) - 0(No drift) 6b. Right Leg: Motor (5-second hold - always test supine) - 0(No drift) 7. Limb Ataxia (finger/nose \T\ heel/jackson - test with eyes open) - 0(Absent) 8. Sensory Loss (pinprick arms/legs/face) - 0(Normal) 9. Best Language: Aphasia (description/naming/reading) - 0(No aphasia) Initials: que Signatures: Dispatcher [employer] Figueroa Santiago MD MD cha Breneman, Marlena Amos, RN RN mb9 Elle Lea RN RN nj1
--- NOTE | 2023-07-29 14:01 | ER ---
Nurse's Notes [facility] Name: Court Louise Age: 68 yrs Sex: Female : 1955 Arrival Date: 07/29/2023 Time: 10:30 Bed 5 Private MD: Diagnosis: UTI/ Urinary tract infection, site not specified;Low back pain Presentation: 07/29 10:58 Chief complaint: Patient states: Low back pain, strong urine odor, burning sensation nj1 with urination (uncomfortable). Coronavirus screen: Vaccine status: Patient reports being unvaccinated. Ebola Screen: Patient denies travel to an Ebola-affected area in the 21 days before illness onset. Initial Sepsis Screen: Does the patient meet any 2 criteria? No. Patient's initial sepsis screen is negative. Does the patient have a suspected source of infection? No. Patient's initial sepsis screen is negative. Risk Assessment: Do you want to hurt yourself or someone else? Patient reports no desire to harm self or others. Onset of symptoms was July 21, 2023. 10:58 Method Of Arrival: Ambulatory nj 10:58 Acuity: TORIBIO 4 nj1 Historical: - Allergies: 11:00 No Known Allergies; nj1 - PMHx: 11:00 Hypertension; High Cholesterol; Hypothyroidism; nj1 - PSHx: 11:00 Operative procedure on knee; nj1 - Immunization history:: Client reports having NOT received the Covid vaccine. - Social history:: Smoking status: Patient denies any tobacco usage or history of. Screenin:18 [facility] ED Fall Risk Assessment (Adult) History of falling in the last 3 months, mb9 including since admission No falls in past 3 months (0 pts) Confusion or Disorientation No (0 pts) Intoxicated or Sedated No (0 pts) Impaired Gait No (0 pts) Mobility Assist Device Used No (0 pt) Altered Elimination No (0 pt) Score/Fall Risk Level 0 - 2 = Low Risk Oriented to surroundings, Maintained a safe environment, Educated pt \T\ family on fall prevention, incl call for assistance when getting out of bed. Abuse screen: Denies threats or abuse. Nutritional screening: No deficits noted. Tuberculosis screening: No symptoms or risk factors identified. Assessment: 12:19 General: Appears in no apparent distress. Behavior is calm, cooperative. Pain: mb9 Complains of pain in back Pain radiates to right flank. Neuro: [place] Agitation-Sedation Scale (RASS): 0 - Alert and Calm Level of Consciousness is awake, alert, obeys commands, Oriented to person, place, time, situation, Appropriate for age. Cardiovascular: Heart tones S1 S2 present Patient's skin is warm and dry. Respiratory: Airway is patent Respiratory effort is even, unlabored, Respiratory pattern is regular, symmetrical, Breath sounds are clear bilaterally. GI: Abdomen is round non-distended, Bowel sounds present X 4 quads. Abd is soft and non tender X 4 quads. : Reports burning with urination. EENT: No signs and/or symptoms were reported regarding the EENT system. Derm: Skin is pink, warm \T\ dry. Musculoskeletal: Range of motion: intact in all extremities. Vital Signs: 10:58 BP 139 / 73; Pulse 72; Resp 18; Temp 97.6(O); Pulse Ox 100% ; Weight 83.91 kg; Height 5 nj1 ft. 4 in. ; Pain 0/10; 12:20 BP 125 / 69; Pulse 84; Resp 16; Pulse Ox 100% on R/A; mb9 14:04 BP 121 / 84; Pulse 65; Resp 16; Pulse Ox 100% on R/A; Pain 0/10; mb9 10:58 Body Mass Index 31.75 (83.91 kg, 162.56 cm) nj1 10:58 Pain Scale: Adult nj1 14:04 Pain Scale: Adult mb9 NIH Stroke Scale Scores: 12:46 NIHSS Score: 0 que ED Course: 10:41 Patient arrived in ED. im 10:43 Figueroa Suarez MD is Attending Physician. que 11:00 Triage completed. nj1 11:01 Arm band placed on left wrist. nj1 11:47 XRAY Chest (1 view) In Process Unspecified. EDMS 11:55 Marlena Lopez, VENECIA is Primary Nurse. mb9 12:18 Placed in gown. Bed in low position. Call light in reach. Side rails up X 1. Client mb9 placed on continuous cardiac and pulse oximetry monitoring. NIBP monitoring applied. zyglo technician on. 12:18 EKG done, by ED staff, reviewed by Figueroa Suarez MD. mb9 12:20 Urinalysis w/ reflexes Sent. mb9 12:20 Urine Culture Sent. mb9 12:30 Inserted saline lock: 20 gauge in left antecubital area, using aseptic technique. Blood zm collected. 12:30 First set of blood cultures drawn by me. zm 12:30 Initial lab(s) drawn, by me, sent to lab. zm 12:45 Second set of blood cultures drawn by me. zm 13:35 CT Abd/Pelvis - IV Contrast Only In Process Unspecified. EDMS 14:05 No provider procedures requiring assistance completed. IV discontinued, intact, mb9 bleeding controlled, No redness/swelling at site. Pressure dressing applied. Administered Medications: 12:37 Drug: NS 0.9% IV 1000 ml IV at 1 bolus Per protocol; 1000 mL bolus Route: IV; Rate: 1 mb9 bolus; Site: left antecubital; 12:56 Drug: Rocephin IV 1 grams IV at per protocol once; Given slow IV push per pharmacy mb9 instructions Route: IV; Rate: per protocol; Site: left antecubital; 13:21 Drug: Ciprofloxacin PO 500 mg PO once Route: PO; mb9 14:03 Follow up: Response: No adverse reaction mb9 Medication: 12:18 VIS not applicable for this client. mb9 Outcome: 14:01 Discharge ordered by . que 14:23 Discharged to home ambulatory, mb9 14:23 Condition: stable 14:23 Discharge instructions given to patient, Instructed on discharge instructions, follow up and referral plans. Demonstrated understanding of instructions, follow-up care, medications, Prescriptions given X 3, 14:24 Patient left the ED. mb9 NIH Stroke Scale - NIH Stroke Score Date: 07/29/2023 Time: 12:46 Total Score = 0 10. Dysarthria (speech clarity - read or repeat words) - 0(Normal) 11. Extinction and Inattention (visual/tactile/auditory/spatial/personal) - 0(No abnormality) 1a. Level of Consciousness (LOC) - 0(Alert) 1b. Level of Consciousness (LOC) (Month \T\ Age) - 0(Both) 1c. LOC Commands (Open \T\ Closes Eyes/Service Center Assistant) - 0(Both) 2. Best Gaze (Lateral Gaze Paresis) - 0(Normal) 3. Visual Field Loss - 0(No visual loss) 4. Facial Palsy - 0(Normal) 5a. Left Arm: Motor (10-second hold) - 0(No drift) 5b. Right Arm: Motor (10-second hold) - 0(No drift) 6a. Left Leg: Motor (5-second hold - always test supine) - 0(No drift) 6b. Right Leg: Motor (5-second hold - always test supine) - 0(No drift) 7. Limb Ataxia (finger/nose \T\ heel/jackson - test with eyes open) - 0(Absent) 8. Sensory Loss (pinprick arms/legs/face) - 0(Normal) 9. Best Language: Aphasia (description/naming/reading) - 0(No aphasia) Initials: que Signatures: Dispatcher [employer] Figueroa Santiago MD MD cha Martinez, Zaina zm Breneman, Marlena Amos, RN RN mb9 Elle Lea RN RN nj1 Morena Moyer
[2023-07-29 14:47] VITALS: TEMP 97.6; O2SAT 100
[2023-07-29 14:51] VITALS: BP 121/84
--- NOTE | 2023-07-30 16:52 | EKG ---
Test Date: 2023-07-29 Test Time: 12:14:23 Hotel Housekeeper: MB MEASUREMENT RESULTS: Intervals: Rate: 69 AK: 172 QRSD: 84 QT: 412 QTc: 441 Karval: P: 44 AK: 172 QRS: 70 T: 53 INTERPRETIVE STATEMENTS: Normal sinus rhythm with sinus arrhythmia Normal ECG Compared to ECG 03/01/2014 17:08:20 No significant changes Electronically Signed On 07-30-23 16:49:47 DIRECTOR OF MANUFACTURING by Shai Whitlock
== END 2023-07-29 14:24 | disposition home or self-care (01) ==
LOC: ER 10:30
DX: N39.0 Urinary tract infection, site not specified (principal); M54.50 Low back pain, unspecified; I10 Essential (primary) hypertension; E03.9 Hypothyroidism, unspecified; E78.00 Pure hypercholesterolemia, unspecified
CPT/HCPCS: 93005; 87040 ×2; 87088; 85025; 81001; 87086; 80048; 36415; 83735; 85610; 80076; 83605; 87077; 87186; 84484; 83880; 74177; 71045; 96374; 99285; Q9967; J7030; J0696